=== PATIENT | female | born 1955 | race Caucasian/White ===

== ENCOUNTER → 2018-01-24 10:58 | Outpatient (CLI) | payer OTHER, SELFPAY ==
--- NOTE | 2018-01-25 09:47 | PFT ---
INTRODUCTION: The patient is a 62-year-old female currently under the care of Dr. David Irving that presents for pulmonary function testing secondary to a diagnosis of COPD. Respiratory therapy reports good patient effort and reports no other concerns. Bronchodilators were used during testing. INTERPRETATION: Forced expiration spirometry demonstrates no evidence of a large airways obstructive ventilatory defect. There was no significant response to aerosolized bronchodilators, based upon strict ATS criteria. Spirograms are of good quality and plateau normally. Body plethysmography was performed and reveals lung volumes to be within normal limits. Diffusing capacity by single breath CO is moderately reduced at 47% of predicted. IMPRESSION: These pulmonary function studies demonstrate the presence of an isolated moderate reduction in diffusing capacity, which could be related to an underlying pulmonary vascular disorder such as pulmonary hypertension. Consideration can be given to obtaining a surface echocardiogram for further evaluation, if clinically indicated.
== END ==
PROVIDERS: Family Provider Family Medicine; PCP Family Medicine; Visit Provider Family Medicine
DX: J44.9 Chronic obstructive pulmonary disease, unspecified (principal)
CPT/HCPCS: 94060; 94726; 94729

== ENCOUNTER → 2018-03-06 07:39 | Outpatient (CLI) | payer OTHER, SELFPAY ==
--- NOTE | 2018-03-06 07:40 | US_ITS ---
STUDY: ULTRASOUND OF THE FEMALE PELVIS - COMPLETE REASON FOR EXAM: Female, 63 years old. Postmenopausal bleeding LMP: Post menopausal TECHNIQUE: Transabdominal and Transvaginal TECHNICAL QUALITY: Adequate. COMPARISON: None. FINDINGS: The uterus is anteverted and is in a midline position. The uterus measures 7.9 x 5.5 x 4.1 cm. There are cervical nabothian cysts. The endometrium measures 16.2 mm in thickness, and is hyperechoic. There is no demonstrated endometrial mass. There are 2 uterine fibroids measuring 2.8 x 2.2 x 1.9 cm and 1.4 x 1.3 x 1.2 cm respectively. I.U.D. - The patient does not have an I.U.D. The right ovary is visualized. The right ovary measures 2.9 x 2.6 x 1.9 cm. There is a 1.9 x 2.0 x 1.6 cm right ovarian cyst. There is no visualized right adnexal mass or complex lesion. There is normal arterial and normal venous vascularity. The left ovary is non-visualized. There is no fluid in the cul-de-sac. The prevoiding urinary bladder volume is 249 cc. Polycystic ovary disease: No. US/Pelvic (Non ) IMPRESSION: 1. Cervical nabothian cysts. 2. 2 uterine fibroids as detailed above. 3. Thickened endometrium measuring up to 16.2 mm. 4. 1.9 x 2.0 x 1.6 cm right ovarian cyst. Electronically Signed: Jonh Carlos MD at 18:49 EDT , Service support ,
--- NOTE | 2018-03-06 07:57 | US_ITS ---
STUDY: ULTRASOUND OF THE FEMALE PELVIS - COMPLETE REASON FOR EXAM: Female, 63 years old. Postmenopausal bleeding LMP: Post menopausal TECHNIQUE: Transabdominal and Transvaginal TECHNICAL QUALITY: Adequate. COMPARISON: None. FINDINGS: The uterus is anteverted and is in a midline position. The uterus measures 7.9 x 5.5 x 4.1 cm. There are cervical nabothian cysts. The endometrium measures 16.2 mm in thickness, and is hyperechoic. There is no demonstrated endometrial mass. There are 2 uterine fibroids measuring 2.8 x 2.2 x 1.9 cm and 1.4 x 1.3 x 1.2 cm respectively. I.U.D. - The patient does not have an I.U.D. The right ovary is visualized. The right ovary measures 2.9 x 2.6 x 1.9 cm. There is a 1.9 x 2.0 x 1.6 cm right ovarian cyst. There is no visualized right adnexal mass or complex lesion. There is normal arterial and normal venous vascularity. The left ovary is non-visualized. There is no fluid in the cul-de-sac. The prevoiding urinary bladder volume is 249 cc. Polycystic ovary disease: No. US/Transvaginal Non- IMPRESSION: 1. Cervical nabothian cysts. 2. 2 uterine fibroids as detailed above. 3. Thickened endometrium measuring up to 16.2 mm. 4. 1.9 x 2.0 x 1.6 cm right ovarian cyst. Electronically Signed: Jonh Carlos MD at 18:49 EDT , Service support ,
== END ==
PROVIDERS: Family Provider Family Medicine; PCP Family Medicine; Visit Provider Nurse Practitioner Family
DX: N95.0 Postmenopausal bleeding (principal)
CPT/HCPCS: 76830; 76856

== ENCOUNTER → 2018-04-12 17:00 | Outpatient (CLI) | payer OTHER, SELFPAY ==
--- NOTE | 2018-04-12 13:30 | EMB_PTH ---
PATIENT: LESLIE RODRIGUEZ LOC: [facility] U#:[id number] AGE/SX: 70/F ROOM: RE04/12/[address]: JOHANA Truong : 1955 BED: DIS: SPEC #: [id number] RECD: 04/12/18 17:01 STATUS: ELLE LUCIAN #: [id number] LEXI: 04/12/18 13:[address]: Pia Castro NP DEPT: SURGICAL PATHOLOGY RECD BY: Edouard Haas ENTERED: 04/13/18 07:08 SP TYPE: ENDOShaila BX/C MINERVA DR: Dr. David Irving DO Tissues: Endometrium, NOS Procedures: Surgery Specimen Level IV HEADER OPERATION: EMB PRE-OP DIAGNOSIS: PMB TISSUE SUBMITTED: Endometrial limning MICROSCOPIC DIAGNOSIS Endometrial biopsy: Inactive endometrium with extensive cystic changes. See comment. SJ:connor 04/14/18 COMMENT A few of the fragments have polypoid appearance, may represent fragments of benign endometrial polyp. MICROSCOPIC DESCRIPTION Slides are reviewed. GROSS DESCRIPTION Received in fixative is one container labeled with the patient's name and designated not further designated. The specimen consists of multiple fragments of hemorrhagic soft tissue mixed with huitron mucoid tissue. It measures, in aggregate, 3 x 2.5 x 0.2 cm. The entire specimen is submitted in one cassette. KHLOE:connor 04/13/18 TC:5 CPT: [id number]
== END ==
PROVIDERS: Family Provider Family Medicine; PCP Family Medicine; Visit Provider Nurse Practitioner Women's Health
DX: N95.0 Postmenopausal bleeding (principal)
CPT/HCPCS: 88305

== ENCOUNTER → 2018-05-11 06:04 | Outpatient (CLI) | payer OTHER, SELFPAY ==
--- NOTE | 2018-05-11 09:31 | STRESSREP ---
Stress Test Report Date: 05/11/2018 Procedure: Pharmacologic stress nuclear imaging study Indications: Chest pain; shortness of breath Consent: Per the patient Procedure: The patient underwent pharmacologic (Regadenoson) evaluation with a peak heart rate of 100 beats per minute (62 predicted maximal heart rate) and a peak blood pressure of 160/86 mmHg. The baseline ECG demonstrated normal sinus rhythm. The peak pharmacologic ECG demonstrated no obvious ECG changes. There were no cardiac dysrhythmias pretest, during pharmacologic infusion, or recovery. There was no complaint of chest discomfort during pharmacologic infusion or recovery. The examination was discontinued secondary to completion of protocol. Impression: 1. Pharmacologic (Regadenoson) evaluation 2. Peak pharmacologic ECG with no obvious ECG changes. 3. There were no cardiac dysrhythmias pretest, during pharmacologic infusion, or recovery 4. Nuclear images pending Myocardial perfusion imaging study: Technique: The patient was injected with 14.4 millicuries of technetium 99m Cardiolite and subsequently rest SPECT Cardiolite nuclear imaging was obtained in the horizontal long, vertical long, and short axis views. The patient underwent pharmacologic (Regadenoson) evaluation with a peak heart rate of 100 beats per minute (62 % percent predicted maximal heart rate) and a peak blood pressure of 160/86 mmHg. The patient was injected with 44.7 millicuries of technetium 99m Cardiolite and subsequently stress SPECT Cardiolite nuclear imaging was obtained in the horizontal long, vertical long, and short axis views. A gated Cardiolite study at peak stress was obtained. Interpretation: Rest and stress SPECT Cardiolite nuclear imaging status post realignment, normalization, and attenuation correction demonstrate the appearance of subtle diminished tracer uptake near the apical segments at rest which appear to be less prominent following stress. There are similar type findings on the resting and stress polar map images. There is end systolic thickening and brightening. The gated Cardiolite study demonstrates myocardial thickening and inward wall motion. The reported LVEF is 72 %. Impression: 1. Rest and stress SPECT Cardiolite nuclear imaging demonstrate the appearance of subtle diminished tracer uptake in the apical segments at rest which appear to improve following stress appearing compatible shifting soft tissue attenuation/artifact with no myocardial perfusion changes considered diagnostic for associated stress-induced myocardial ischemia or previous myocardial injury/infarction. 2. The gated Cardiolite study reports an LVEF of 72 %. This note was generated with [employer] software. It may contain incorrect words, spelling, and punctuation that were not noted in checking the note before signing.
--- NOTE | 2018-05-11 09:36 | STRESSREP_ITS ---
Stress Test Report Date: 05/11/2018 Procedure: Pharmacologic stress nuclear imaging study Indications: Chest pain; shortness of breath Consent: Per the patient Procedure: The patient underwent pharmacologic (Regadenoson) evaluation with a peak heart rate of 100 beats per minute (62 predicted maximal heart rate) and a peak blood pressure of 160/86 mmHg. The baseline ECG demonstrated normal sinus rhythm. The peak pharmacologic ECG demonstrated no obvious ECG changes. There were no cardiac dysrhythmias pretest, during pharmacologic infusion, or recovery. There was no complaint of chest discomfort during pharmacologic infusion or recovery. The examination was discontinued secondary to completion of protocol. Impression: 1. Pharmacologic (Regadenoson) evaluation 2. Peak pharmacologic ECG with no obvious ECG changes. 3. There were no cardiac dysrhythmias pretest, during pharmacologic infusion, or recovery 4. Nuclear images pending Myocardial perfusion imaging study: Technique: The patient was injected with 14.4 millicuries of technetium 99m Cardiolite and subsequently rest SPECT Cardiolite nuclear imaging was obtained in the horizontal long, vertical long, and short axis views. The patient underwent pharmacologic (Regadenoson) evaluation with a peak heart rate of 100 beats per minute (62 % percent predicted maximal heart rate) and a peak blood pressure of 160/86 mmHg. The patient was injected with 44.7 millicuries of technetium 99m Cardiolite and subsequently stress SPECT Cardiolite nuclear imaging was obtained in the horizontal long, vertical long, and short axis views. A gated Cardiolite study at peak stress was obtained. Interpretation: Rest and stress SPECT Cardiolite nuclear imaging status post realignment, normalization, and attenuation correction demonstrate the appearance of subtle diminished tracer uptake near the apical segments at rest which appear to be less prominent following stress. There are similar type findings on the resting and stress polar map images. There is end systolic thickening and brightening. The gated Cardiolite study demonstrates myocardial thickening and inward wall motion. The reported LVEF is 72 %. Impression: 1. Rest and stress SPECT Cardiolite nuclear imaging demonstrate the appearance of subtle diminished tracer uptake in the apical segments at rest which appear to improve following stress appearing compatible shifting soft tissue attenuation/artifact with no myocardial perfusion changes considered diagnostic for associated stress-induced myocardial ischemia or previous myocardial injury/ infarction. 2. The gated Cardiolite study reports an LVEF of 72 %. This note was generated with [employer] software. It may contain incorrect words, spelling, and punctuation that were not noted in checking the note before signing.
== END ==
PROVIDERS: Family Provider Family Medicine; PCP Family Medicine; Visit Provider Family Medicine
DX: R06.09 Other forms of dyspnea (principal)
CPT/HCPCS: 78452; 93017; A9500; A4216; J2785

== ENCOUNTER 2018-06-01 09:08 | Day surgery (SDC) | payer MEDICARE, SELFPAY ==
[2018-06-01 09:32] VITALS: BP 150/78; PULSE 69; RESP 16; TEMP 36.6; O2SAT 96; BMI 40.5
--- NOTE | 2018-06-01 09:37 | PCM.HPOB.BLA ---
- Problem List (1) Postmenopausal bleeding Status: Acute History and Physical Date of Admission: 06/01/18 Vital Signs 04/12/18 Height 5 ft 04/12/18 Weight: 208 lb 2 oz 04/12/18 Body Mass Index (BMI) 40.6 04/12/18 Blood Pressure 134/82 Intake Visit Reasons: PMB - OUT OF TOWN UNTIL NOW Chief Complaint: PMB Filleter Required: No Is patient in pain?: No Allergies bacitracin Allergy (Severe, Verified 04/12/18 13:35) Hives Latex, Natural Rubber Allergy (Severe, Verified 04/12/18 13:35) rash neomycin [From Neosporin ([id number])] Allergy (Severe, Verified 04/12/18 13:35) blisters polymyxin B [From Neosporin ([id number])] Allergy (Severe, Verified 04/12/18 13:35) blisters codeine Adverse Reaction (Severe, Verified 04/12/18 13:35) dizziness clidamycin Allergy (Severe, Uncoded 04/12/18 13:35) hives Medications calcium carbonat and lactate 200 mg calcium-vitamin D3 250 unit tablet 2 tab PO QAM AND QHS 01/05/18 [History Confirmed 04/12/18] duloxetine 60 mg capsule,delayed release 60 mg PO QDAY 01/05/18 [History Confirmed 04/12/18] hydrochlorothiazide 12.5 mg tablet 12.5 mg PO QAM 01/05/18 [History Confirmed 04/12/18] loratadine 5 mg-pseudoephedrine ER 120 mg tablet,extended release,12hr 1 tab PO Q12H 01/05/18 [History Confirmed 04/12/18] metoprolol tartrate 50 mg tablet 50 mg PO BID 01/05/18 [History Confirmed 04/12/18] metronidazole 0.75 % topical cream 1 applic TOPICAL BID 01/05/18 [History Confirmed 04/12/18] mirabegron ER 50 mg tablet,extended release 24 hr 50 mg PO Q24H 01/05/18 [History Confirmed 04/12/18] mupirocin 2 % topical cream 1 applic TOPICAL BID 01/05/18 [History Confirmed 04/12/18] nystatin 100,000 unit/gram topical powder 1 applic TOPICAL BID 01/05/18 [History Confirmed 04/12/18] nystatin-triamcinolone topical cream applic TOPICAL 01/05/18 [History Confirmed 04/12/18] polyethylene glycol 3350 17 gram/dose oral powder 17 g PO QDAY 01/05/18 [History Confirmed 04/12/18] potassium chloride ER 20 mEq tablet,extended release(part/cryst) 20 meq PO QDAY 01/05/18 [History Confirmed 04/12/18] ropinirole 2 mg tablet 2 mg PO QHS tab 01/05/18 [History Confirmed 04/12/18] triamcinolone acetonide 0.1 % topical cream 1 applic TOPICAL QDAY 01/05/18 [History Confirmed 04/12/18] valacyclovir 500 mg tablet 500 mg PO BID 01/05/18 [History Confirmed 04/12/18] omeprazole magnesium 20 mg tablet,delayed release 20 mg PO QDAY #90 tab 03/15/18 [Rx Confirmed 04/12/18] Is last menstrual period known: No Post menopausal: Yes Patient : No : No PFSH Medical History Frequent headaches (Chronic) GERD (gastroesophageal reflux disease) (Chronic) Psoriasis (Acute) Hypertension (Chronic) Cataracts, bilateral (Chronic) Seasonal allergies (Chronic) Depression with anxiety (Chronic) Diverticulitis (Chronic) History of Hodgkin's lymphoma (Acute) Fatty liver disease, nonalcoholic (Chronic) SOFÍA (obstructive sleep apnea) (Acute) Surgical History History of lymph node biopsy (Acute) History of tonsillectomy (Acute) History of tubal ligation (Acute) Family History Mother Alcoholism Hypertension Depression Sister Cancer cervical Depression Grandmother Alcoholism Grandfather Depression Alcoholism Myocardial infarction Heart disease Cancer throat Social History Smoking Status: Never smoker alcohol intake: current alcohol intake frequency: 0-2 drinks per day Alcohol type: wine details: social substance use type: does not use caffeine: Yes what type of physical activity do you participate in: none seatbelt use: always do you feel safe at home: Yes additional social history: [employer]- Retired Patient is retired HPI PMB - OUT OF TOWN UNTIL NOW: Details: LESLIE RODRIGUEZ is a 63 year old who presents for 1 month ago had 4 day normal menses. Saw PCP and had US indicating uterine lining 16mm. No bleeding since. On estrace X 5 years. States prempro prior to that for hot flushes. States 20 years postmenopausal. History of lymphoma. Last pap negative with PCP in 2017 (Dr. [facility] Irving) Pregancy History 3 Elective abortions Hx Para 2 Spontaneous abortions Hx # Term Pregnancies Ectopic pregnancies Hx # Pregnancies Multiple births # of living children Past Pregnancies Del. Date Name GA/Weeks Outcome Route Bth Weight Infant Gen Labor Lgth Anesthesia Del Locatn Provider FOB Unknown 1978 Maria Guti[facility]rez Unknown 1982 [place] [facility] Procedures Endometrial Biopsy Endometrial Biopsy Consent Signed: Yes Time out checklist: patient, procedure, site marked/identified, positioning of patient, supplies available, allergies confirmed, team agrees on procedure Time out time: 14:09 tenaculum used: Yes dilator used: No Details: Cervix prepped with betadine and pipelle inserted into uterus without complication. Sounded to 9cm. Specimen obtained and sent to lab for analysis. All instruments removed from vagina without complications. Excellent hemostasis noted. Patient tolerated well Assessment & Plan Problems 1. Postmenopausal bleeding N95.0 2. Thickened endometrium R93.8 Plan need hysteroscopy D&C discussed surgical risks including risks of anesthesia, infection, bleeding, injury to bowel, bladder or blood vessels, and patient wishes to proceed with surgery. UPDATE- I have seen the patient and performed any clinically relevant updates to the history and physical exam. Gina Kessler MD
[2018-06-01 09:55] LABS: Hematocrit 42.1 % (37-47); Hemoglobin 14.4 g/dl (12.0-15.0); Mean Corp Hgb Conc 34.2 g/gl (32-36); Mean Corpuscular Hgb 33.8 pg (27.0-32.0); Mean Corpuscular Volume 98.8 fL (81-99); Mean Platelet Vol. 9.9 fl (6.2-12.0); Platelet Count 161 K/mm3 (150-450); RBC Distribution Width CV 13.2 % (11.6-14.6); RBC Distribution Width SD 47.7 fl (35.1-43.9); Red Blood Count 4.26 M/mm3 (4.2-5.4); White Blood Count 6.8 K/mm3 (4.4-11.0)
[2018-06-01 09:57] LABS: Scan Indicated on CBC? Y/N NO
--- NOTE | 2018-06-01 10:40 | EMB_PTH ---
PATIENT: LESLIE RODRIGUEZ [place] [facility] [place][id number] AGE/SX: 63/F ROOM: RE06/01/[address]: Dr. Gina Kessler MD : 1955 BED: DIS: 06/01/2018 SPEC #: [id number] RECD: 06/01/18 14:51 STATUS: ELLE LUCIAN #: [id number] LEXI: 06/01/18 10:[address]: Gina Kessler DEPT: SURGICAL PATHOLOGY RECD BY: Marques Russell ENTERED: 06/02/18 09:03 SP TYPE: ENDOM BX/C MINERVA DR: Dr. David Irving, DO Tissues: Endometrium, NOS Procedures: Surgery Specimen Level IV HEADER OPERATION: Hysteroscopy, dilation and curettage PRE-OP DIAGNOSIS: Postmenopausal bleeding, thickened endometrium TISSUE SUBMITTED: Endometrial curettings, endometrial polyp MICROSCOPIC DIAGNOSIS Endometrial curettings, endometrial polyp: Simple cystic hyperplasia without atypia. Fragments of benign squamous epithelium. KHLOE:misty 06/05/18 COMMENT A few of the fragments have polypoid appearance and may represent fragments of polyp. Clinical correlation and appropriate follow up are necessary. Please make reference to previous specimen ([id number]) endometrial biopsy with diagnosis of inactive endometrium with extensive cystic changes. MICROSCOPIC DESCRIPTION Slides are reviewed. GROSS DESCRIPTION Received in fixative is one container labeled with the patient's name and designated endometrial curettings and endometrial polyp. The specimen consists of multiple irregular fragments of pink-red soft tissue that in aggregate measure 6 x 3 x 0.2 cm. The specimen is totally submitted in three cassettes. / AM:misty 06/02/18 TC:5 [facility]: [id number]
--- NOTE | 2018-06-01 11:21 | PCM.OPRPT ---
Problem List (1) Postmenopausal bleeding Status: Acute Report of Operation Date of Procedure: 06/01/18 Pre-Operative Diagnosis: Postmenopausal bleeding postmenopausal bleeding Post-Operative Diagnosis: Same Surgery/Procedure Performed:: D&C hysteroscopy polypectomy Description of Surgical Findings:: Atrophic lining with large endometrial polyp Type of Anesthesia:: Local MAC Specimen's removed: EMC and endometrial polyp Drains: None Estimated Blood Loss (mL): Minimal Fluids Replaced: Styloid Description of Procedure: Patient was prepped and draped in a normal sterile fashion under MAC anesthesia. A weighted speculum was placed in the vagina and the anterior lip of the cervix was grasped with a single-tooth tenaculum. A paracervical block was placed with 1% lidocaine. Cervix was progressively dilated to allow passage of a 5 mm hysteroscope. The lining was fully visualized and noted to have a large endometrial polyp. Uterine sounded to 8 cm. Curettage was performed and multiple pieces of the polyp were removed with polyp forceps and hysteroscopic polyp forceps, sent to pathology. All instruments were removed from the vagina and excellent hemostasis was noted. Patient was awoken and taken to recovery in stable condition. Grafts/Implants Used: None - Complications None - Admit VTE Documentation VTE Present on Admission: No
--- NOTE | 2018-06-01 11:24 | PCM.DC.D&C ---
Discharge Diet: No Restrictions Discharge Activity: Return to Normal Activity, May Shower, May Take a Tub Bath Allergies/Adverse Reactions: Allergies bacitracin Allergy (Severe, Verified 06/01/18 09:30) Hives Latex, Natural Rubber Allergy (Severe, Verified 06/01/18 09:30) rash neomycin [From Neosporin ([id number])] Allergy (Severe, Verified 06/01/18 09:30) blisters polymyxin B [From Neosporin ([id number])] Allergy (Severe, Verified 06/01/18 09:30) blisters codeine Adverse Reaction (Severe, Verified 06/01/18 09:30) dizziness clidamycin Allergy (Severe, Uncoded 06/01/18 09:30) hives Medications to take at Discharge calcium carbonat and lactate 200 mg calcium-vitamin D3 250 unit tablet 2 tab PO BID 01/05/18 duloxetine 60 mg capsule,delayed release 60 mg PO QHS 01/05/18 hydrochlorothiazide 12.5 mg tablet 12.5 mg PO QAM 01/05/18 loratadine 5 mg-pseudoephedrine ER 120 mg tablet,extended release,12hr 1 tab PO Q12H PRN 01/05/18 metoprolol tartrate 50 mg tablet 50 mg PO BID 01/05/18 metronidazole 0.75 % topical cream 1 applic TOPICAL BID 01/05/18 mirabegron ER 50 mg tablet,extended release 24 hr 50 mg PO DAILY 01/05/18 mupirocin 2 % topical cream 1 applic TOPICAL BID PRN 01/05/18 nystatin 100,000 unit/gram topical powder 1 applic TOPICAL BID 01/05/18 nystatin-triamcinolone topical cream 1 applic TOPICAL PRN PRN 01/05/18 polyethylene glycol 3350 17 gram/dose oral powder 17 g PO QDAY PRN 01/05/18 ropinirole 2 mg tablet 2 mg PO QHS tab 01/05/18 triamcinolone acetonide 0.1 % topical cream 1 applic TOPICAL QDAY 01/05/18 valacyclovir 500 mg tablet 500 mg PO BID 01/05/18 potassium chloride ER 20 mEq tablet,extended release(part/cryst) 20 meq PO QDAY #90 tab 05/04/18 Omeprazole Magnesium [Prilosec Otc] 20 mg PO QHS 05/25/18 Primary Care Physician: David Irving DO [Primary Care Provider] - Test Results: Test results from this visit will be discussed in further detail at your follow-up appointment, if applicable. Please Follow Up With: Gina Kessler MD - [phone]
[2018-06-01 11:33] VITALS: BP 141/96; BP 150/78; PULSE 84; RESP 18; TEMP 36.7; O2SAT 94
[2018-06-01 11:40] VITALS: BP 150/78; BP 151/90; PULSE 83; RESP 18; O2SAT 97
[2018-06-01 11:45] VITALS: BP 150/78; BP 151/88; PULSE 81; RESP 18; O2SAT 100
[2018-06-01 11:50] VITALS: BP 148/86; BP 150/78; PULSE 74; RESP 18; TEMP 36.9; O2SAT 97
[2018-06-01 12:51] VITALS: BP 150/78
== END 2018-06-01 12:55 | disposition home or self-care (01) ==
LOC: SDC 09:08 → AC 09:10
PROVIDERS: Family Provider Family Medicine; PCP Family Medicine; Visit Provider Obstetrics & Gynecology
PROC: 0UDB8ZZ Extraction of Endometrium, Via Natural or Artificial Opening Endoscopic (ICD-10-PCS; CPT 58558; principal; 2018-06-01 10:30)
DX: N95.0 Postmenopausal bleeding (principal); R93.8 Abnormal findings on diagnostic imaging of other specified body structures; N84.0 Polyp of corpus uteri; N85.01 Benign endometrial hyperplasia; K21.9 Gastro-esophageal reflux disease without esophagitis; I10 Essential (primary) hypertension; F41.8 Other specified anxiety disorders; Z85.71 Personal history of Hodgkin lymphoma; K76.0 Fatty (change of) liver, not elsewhere classified
CPT/HCPCS: 00952; 58558; 85027; 86850; 86900; 88305; J7120; J2405

== ENCOUNTER → 2018-08-30 16:09 | Outpatient (CLI) | payer MEDICARE, SELFPAY ==
[2018-08-30 15:23] VITALS: BMI 41.8
--- NOTE | 2018-08-30 16:12 | RAD_ITS ---
STUDY: X-RAY - LEFT HAND, ATTENTION FINGER REASON FOR EXAM: Female, 63 years old. Left thumb deformity TECHNIQUE: 3 views view(s) of the finger were obtained. COMPARISON: None. FINDINGS: No fractures or dislocations. Mild degenerative changes of the first carpometacarpal joint. The visualized soft tissues are normal. Electronically Signed: Robb Arreola MD at 5:51 EST Tel , Service support , RAD/Finger(s) Min 2 Views
== END ==
PROVIDERS: Family Provider Family Medicine; PCP Family Medicine; Referring Provider Family Medicine; Visit Provider Family Medicine
DX: M79.645 Pain in left finger(s) (principal)
CPT/HCPCS: 73140

== ENCOUNTER 2018-09-09 21:58 | Emergency (ER) | payer MEDICARE, SELFPAY ==
[2018-08-30 15:23] VITALS: BMI 41.8
[2018-09-09 21:59] VITALS: BP 204/99; PULSE 143; RESP 22; TEMP 36.9; O2SAT 100; BMI 41.0
--- NOTE | 2018-09-09 22:28 | US_ITS ---
STUDY: ULTRASOUND TRANSVAGINAL CLINICAL: Female, 63 years old. Dysfunctional uterine bleeding. Patient had a DTC 2 months ago. TECHNIQUE: Both transabdominal and transvaginal probes were used COMPARISON: 03/06/2018 FINDINGS: The uterus is somewhat anteverted and measures 11.0 x 6.5 x 6.0 cm. A 2.6 cm fibroid is seen in the posterior myometrial wall. There is an endometrial stripe thickness of 1.8 cm. The left ovary is not visualized. The right is seen and measures 2.1 x 2.6 x 3.4 cm. It also demonstrates normal Doppler flow and has a 2.0 cm cyst within it. There is no free fluid in the cul-de-sac. US/Transvaginal Non- IMPRESSION: A 2.0 cm right ovarian cyst with no free fluid in the cul-de-sac. The left ovary is not visualized. A 2.6 cm fibroid in the posterior myometrial wall Electronically Signed: Robb Arreola MD at 0:09 EST Tel , Service support ,
--- NOTE | 2018-09-09 22:33 | ED.DCSUM_ITS ---
- ER Visit Summary Date of Service: 09/09/18 Chief Complaint: Vaginal bleeding History of Present Illness: The patient is a 63 F with history of dysfunctional uterine bleeding status post ablation 3 months ago presents for vaginal bleeding for 3 days. Patient has been on norethindrone since the ablation, and she stopped taking it 4 days ago due to nipple discomfort. 3 days ago she began having vaginal bleeding. She is using approximately 1 pad an hour. It has been heavier since yesterday evening. She has had dizziness and lightheadedness with standing. Also having a headache and abdominal cramping. She denies urinary symptoms or other complaints. She denies being on any blood thinners or having any bleeding disorders. Physical Examination: Vital signs: afebrile, tachycardic at 120 bpm at rest, no hypoxia on room air General: well nourished, well developed, in no distress Skin: warm, dry, no rash, no pallor HEENT: normocephalic and atraumatic; PERRL, EOMI, moist mucous membranes Cardiovascular: Tachycardic rate and rhythm without murmurs, no peripheral edema, 2+ pulses all distal extremities Respiratory: No increased work of breathing, lungs are clear to auscultation bilaterally, no rales, rhonchi or wheezing Abdominal: Abdomen is soft, nontender with normoactive bowel sounds, no guarding or rebound, no masses MSK: Moves all extremities, no deformities, normal strength Neuro: Awake and alert, oriented ?4. No facial droop, sensation and motor function intact and symmetric : moderate dark red blood from cervix, no vaginal lacerations, no cervical motion tenderness Test Results: Abnormal Lab Results 09/09/18 09/09/18 09/09/18 22:40 22:40 22:40 WBC 7.6 RBC 3.91 L Hgb 13.1 Hct 38.3 MCV 98.0 MCH 33.5 H MCHC 34.2 RDW 13.0 RDW Differential 46.3 H Plt Count 166 MPV 9.8 Immature Gran % (Auto) 0.100 Neut % (Auto) 52.6 Lymph % (Auto) 38.4 [place] % (Auto) 5.4 Eos % (Auto) 3.0 Baso % (Auto) 0.5 Absolute Neuts (auto) 4.0 Absolute Lymphs (auto) 2.93 Total Counted Not Reportable Sodium 136 Potassium 3.3 L Chloride 103 Carbon Dioxide 25.0 Anion Gap 8 BUN 8 Creatinine 0.73 Estim Creat Clear Calc 58.13 Est GFR (MDRD) Af Amer 104 Est GFR (MDRD) Non-Af 86 BUN/Creatinine Ratio 11.0 Glucose 203 H Calcium 8.3 L Blood Type O POSITIVE Antibody Screen NEGATIVE Clinical Impression(s) from Imaging Studies Transvaginal US 09/09/18 22:28 IMPRESSION: A 2.0 cm right ovarian cyst with no free fluid in the cul-de-sac. The left ovary is not visualized. A 2.6 cm fibroid in the posterior myometrial wall Electronically Signed: Robb Arreola MD at 0:09 EST Tel , Service support , Medications Given Discontinued Medications Sodium Chloride () 1,000 mls @ 1,000 mls/hr IV .Q1H ONE Stop: 09/09/18 23:27 Last Admin: 09/09/18 22:50 Dose: 1,000 mls/hr Emergency Department Course and Treatment: Patient presents for 3 days of vaginal bleeding, and is tachycardic at presentation. She was given IV fluids for concern for volume depletion. Type and screen was performed in case patient requires transfusion. CBC showed no anemia.. Ultrasound of the pelvis showed a uterine fibroid and an endometrial stripe of 1.8 cm. Otherwise no significant findings. Patient did stop her norethindrone the day before the bleeding started, which is highly suspect for withdrawal bleeding. Patient was discussed with Jodi Castro, who agrees that this is likely withdrawal bleeding. She recommended patient restart the medication and take it 3 times daily until the bleeding stopped for 24 hours. Then switch to twice daily. Patient is to follow-up on Tuesday with Dr. Kessler, especially if bleeding persists. She will return if any worsening symptoms or continued heavy bleeding not responding to the medication. Patient agreed with this plan and was discharged home. At time of discharge, patient's heart rate had improved to 102. Treatment Plan: [] Disposition: [] Impression: Dysfunctional uterine bleeding, hormone withdrawal bleeding This note was generated with [employer] software. It may contain incorrect words, spelling, and punctuation that were not noted in review of the chart prior to signing ED Disposition - Plan for ED Patient: Disposition: Home or Assisted Living Chief Complaint: Vag Bleeding Instructions: ED Bleed Irregular Vaginal Referrals: David Irving DO [Primary Care Provider] - Gina Kessler MD [STAFF PHYSICIAN] - 2 Days Additional Instructions: Restart your norethindrone 5mg. Take it 3 times a day until your bleeding has stopped for 24 hours. Then start taking it twice a day. Call on Tuesday to follow-up with your character actor. If at any point you are having worsening of your symptoms rather than improvement, please return emergency department immediately for another evaluation.
[2018-09-09] MEDS: 0.9% Normal Saline 1,000 ML 1000 ML IV (22:50)
[2018-09-09 22:56] LABS: Absolute Lymphocyte Count 2.93 X10^3/ul (0.83-4.51); Basophil# 0.04 X10^3/uL; Basophil% 0.5 % (0-1); Eosinophil# 0.23 X10^3/uL; Hematocrit 38.3 % (37-47); Hemoglobin 13.1 g/dl (12.0-15.0); Lymphocyte # 2.93 X10^3/ul (4.0); Lymphocyte % 38.4 % (19-41); Mean Corp Hgb Conc 34.2 g/gl (32-36); Mean Corpuscular Hgb 33.5 pg (27.0-32.0); Mean Platelet Vol. 9.8 fl (6.2-12.0); Monocyte# 0.41 X10^3/uL; Monocyte% 5.4 % (0-10); Neutrophil # 4.01 X10^3/uL (2.7-7.7); Neutrophil % 52.6 % (47-70); Platelet Count 166 K/mm3 (150-450); RBC Distribution Width SD 46.3 fl (35.1-43.9); Red Blood Count 3.91 M/mm3 (4.2-5.4); White Blood Count 7.6 K/mm3 (4.4-11.0)
[2018-09-09 23:00] LABS: POSITIVE COUNT NO; POSITIVE DIFFERENTIAL NO; POSITIVE MORPHOLOGY NO
[2018-09-09 23:02] LABS: Anion Gap 8 (5-15); BUN 8 mg/dL (7-18); Calcium,Total 8.3 mg/dL (8.5-10.1); Chloride 103 mmol/L (98-107); Creatinine, Serum 0.73 mg/dL (0.55-1.02); EST Glomerular Filtration Rate 86 mL/min (>60); Est Glom Filt Rate - Afr Amer 104 mL/min (>60); Estimated Creatinine Clearance 58.13 ml/min; Glucose 203 mg/dL (74-106); Potassium 3.3 mmol/L (3.5-5.1); Sodium Level 136 mmol/L (136-145)
--- NOTE | 2018-09-10 00:54 | DCINST.ED_ITS ---
ED Disposition - Plan for ED Patient: Disposition: Home or Assisted Living Chief Complaint: Vag Bleeding Instructions: ED Bleed Irregular Vaginal Referrals: David Irving DO [Primary Care Provider] - Gina Kessler MD [STAFF PHYSICIAN] - 2 Days Additional Instructions: Restart your norethindrone 5mg. Take it 3 times a day until your bleeding has stopped for 24 hours. Then start taking it twice a day. Call on Tuesday to follow-up with your director intelligence analysis programs. If at any point you are having worsening of your symptoms rather than improvement, please return emergency department immediately for another evaluation.
[2018-09-10 00:57] VITALS: BP 138/74; PULSE 73; RESP 15; O2SAT 98
== END 2018-09-10 01:03 | disposition home or self-care (01) ==
PROVIDERS: Emergency Provider Emergency Medicine; Family Provider Family Medicine; PCP Family Medicine
DX: N93.8 Other specified abnormal uterine and vaginal bleeding (principal); N83.201 Unspecified ovarian cyst, right side; Z98.890 Other specified postprocedural states
CPT/HCPCS: 76830; 80048; 85025; 86850; 86900; 99282; J7030

== ENCOUNTER 2018-11-16 05:28 | Day surgery (SDC) | payer MEDICARE, SELFPAY ==
[2018-09-22 09:33] VITALS: BMI 41.0
--- NOTE | 2018-10-24 09:39 | EKG12_ITS ---
Test Reason : ROUTINE Blood Pressure : / mmHG Vent. Rate : 101 BPM Atrial Rate : 101 BPM P-R Int : 152 ms QRS Dur : 062 ms QT Int : 342 ms P-R-T Axes : 057 005 038 degrees QTc Int : 443 ms Sinus tachycardia Moderate voltage criteria for LVH, may be normal variant Borderline ECG Confirmed by GENNA GEE, RADHA ([id number]), assignment desk editor FELICE HARE ([id number]) on 10/25/2018 2:20:58 PM Referred By: Gina Kessler Confirmed By:RADHA VAIL MD
[2018-11-06 09:59] VITALS: BMI 35.9
[2018-11-10 09:38] LABS: Anion Gap 9 (5-15); BUN 10 mg/dL (7-18); BUN/Creat Ratio 12.8 RATIO (10-20); Calcium,Total 9.3 mg/dL (8.5-10.1); Chloride 103 mmol/L (98-107); Creatinine, Serum 0.78 mg/dL (0.55-1.02); EST Glomerular Filtration Rate 80 mL/min (>60); Est Glom Filt Rate - Afr Amer 97 mL/min (>60); Glucose 133 mg/dL (74-106); Potassium 3.7 mmol/L (3.5-5.1); Sodium Level 135 mmol/L (136-145)
--- NOTE | 2018-11-15 20:32 | HP.PCM_ITS ---
- Problem List (1) History of Hodgkin's lymphoma Status: Acute (2) Postmenopausal bleeding Status: Acute (3) Psoriasis Status: Acute (4) Sinusitis chronic, frontal Status: Acute (5) Cataracts, bilateral Status: Chronic (6) Depression with anxiety Status: Chronic (7) Diverticulitis Status: Chronic (8) Endometrial hyperplasia without atypia, simple Status: Chronic Comment: plan hysterectomy (9) Fatty liver disease, nonalcoholic Status: Chronic (10) Frequent headaches Status: Chronic (11) GERD (gastroesophageal reflux disease) Status: Chronic (12) Hypertension Status: Chronic (13) Seasonal allergies Status: Chronic (14) Ventricular tachyarrhythmia Status: Suspected Comment: Pt. will get a fitbit to monitor HR and see if its atrial fibrillation. (15) BOOP (bronchiolitis obliterans with organizing pneumonia) Status: Resolved History and Physical Date of Admission: 11/15/18 Intake Vital Signs 11/06/18 Body Mass Index (BMI) 35.9 11/06/18 Height 5 ft 11/06/18 Weight: 217 lb 11/06/18 Body Mass Index (BMI) 42.3 11/06/18 Blood Pressure 150/92 H Intake Visit Reasons: Pre-op surgery/SOAP Chief Complaint: pre op appt Regional Business Manager Required: No Is patient in pain?: No Allergies bacitracin Allergy (Severe, Verified 11/06/18 09:59) Hives Latex, Natural Rubber Allergy (Severe, Verified 11/06/18 09:59) rash neomycin [From Neosporin ([id number])] Allergy (Severe, Verified 11/06/18 09:59) blisters polymyxin B [From Neosporin ([id number])] Allergy (Severe, Verified 11/06/18 09:59) blisters clindamycin Allergy (Unknown, Verified 11/06/18 09:59) Unknown codeine Adverse Reaction (Severe, Verified 11/06/18 09:59) dizziness Medications calcium carbonat and lactate 200 mg calcium-vitamin D3 250 unit tablet 1 tab PO PRN PRN 01/05/18 [History Confirmed 10/06/18] metoprolol tartrate 50 mg tablet 50 mg PO BID 01/05/18 [History Confirmed 10/06/18] mupirocin 2 % topical cream 1 applic TOPICAL BID PRN 01/05/18 [History Confirmed 10/06/18] nystatin 100,000 unit/gram topical powder 1 applic TOPICAL BID 01/05/18 [History Confirmed 10/06/18] nystatin-triamcinolone topical cream 1 applic TOPICAL PRN PRN 01/05/18 [History Confirmed 10/06/18] polyethylene glycol 3350 17 gram/dose oral powder 17 g PO QDAY PRN 01/05/18 [History Confirmed 10/06/18] ropinirole 2 mg tablet 2 mg PO QHS tab 01/05/18 [History Confirmed 10/06/18] valacyclovir 500 mg tablet 500 mg PO BID 01/05/18 [History Confirmed 10/06/18] potassium chloride ER 20 mEq tablet,extended release(part/cryst) 20 meq PO QDAY #90 tab 05/04/18 [Rx Confirmed 10/06/18] Omeprazole Magnesium [Prilosec Otc] 20 mg PO QHS 05/25/18 [History Confirmed 10/06/18] hydrochlorothiazide 12.5 mg tablet 12.5 mg PO QAM #90 tab 06/05/18 [Rx Confirmed 10/06/18] norethindrone acetate 5 mg tablet 5 mg PO BID #60 tab 09/19/18 [Rx Confirmed 10/06/18] blood sugar diagnostic strips See Dose Instructions .ROUTE .MEDSUPPLY #50 ea 10/06/18 [Rx Confirmed 10/06/18] blood-glucose meter kit See Dose Instructions .ROUTE .MEDSUPPLY #1 ea 10/06/18 [Rx Confirmed 10/06/18] lancets 28 gauge See Dose Instructions .ROUTE .MEDSUPPLY #50 ea 10/06/18 [Rx Confirmed 10/06/18] lisinopril 5 mg tablet 5 mg PO DAILY #90 tab 10/06/18 [Rx Confirmed 10/06/18] metformin ER 500 mg tablet,extended release 24 hr 500 mg PO QPM #30 tab 10/06/18 [Rx Confirmed 10/06/18] triamcinolone acetonide 0.1 % topical cream 1 applic TOPICAL QDAY #30 g 10/06/18 [Rx Confirmed 10/06/18] duloxetine 60 mg capsule,delayed release 60 mg PO QHS #90 cap 10/23/18 [Rx] amoxicillin 875 mg-potassium clavulanate 125 mg tablet 1 tab PO BID #14 tab 10/31/18 [Rx Confirmed 10/31/18] prednisone 10 mg tablets in a dose pack See Rx Instructions PO PER PKG DIR #21 tab 10/31/18 [Rx Confirmed 10/31/18] Is last menstrual period known: No Post menopausal: Yes Patient : No : No PFSH Medical History Frequent headaches (Chronic) GERD (gastroesophageal reflux disease) (Chronic) Psoriasis (Acute) Hypertension (Chronic) Cataracts, bilateral (Chronic) Seasonal allergies (Chronic) Depression with anxiety (Chronic) Diverticulitis (Chronic) History of Hodgkin's lymphoma (Acute) Fatty liver disease, nonalcoholic (Chronic) SOFÍA (obstructive sleep apnea) (Acute) Diabetes mellitus (Chronic) Surgical History History of lymph node biopsy (Acute) History of tonsillectomy (Acute) History of tubal ligation (Acute) S/P dilation and curettage (Acute ~06/01/18) Family History Mother Alcoholism Hypertension Depression Sister Cancer cervical Depression Grandmother Alcoholism Grandfather Depression Alcoholism Myocardial infarction Heart disease Cancer throat Social History Smoking Status: Never smoker alcohol intake: current alcohol intake frequency: 0-2 drinks per day Alcohol type: wine details: social substance use type: does not use caffeine: Yes what type of physical activity do you participate in: none seatbelt use: always do you feel safe at home: Yes additional social history: [employer]- Retired Patient is retired HPI Pre-op surgery/SOAP: Details: LESLIE RODRIGUEZ is a 63 year old who presents for preop appointment. she has simple endometrial hyperplasia with persistent bleeding. she also has MIGUEL and some prolapse. she is having pelvic floor surgery by Dr Acuna the same day. Pregancy History 3 Elective abortions Hx Para 2 Spontaneous abortions Hx # Term Pregnancies Ectopic pregnancies Hx # Pregnancies Multiple births # of living children Past Pregnancies Del. Date Name GA/Weeks Outcome Route Bth Weight Gen Labor Lgth Anesthesia Del Locatn Provider FOB Unknown 1978 Maria Gutiérrez Unknown 1982 [place] Mahoney Constitutional: Denies poor appetite, headache(s), fever(s), increased appetite, weight gain, weight loss or fatigue Cardio Card: Denies chest pain Resp Resp: Reports cough GI GI: Reports as per HPI; denies vomiting, nausea, abdominal pain or constipation : Reports as per HPI; denies urinary urgency, vaginal discharge, urinary frequency, vaginal itching, vaginal odor, vaginal dryness, urinary incontinence, urinary hesitancy, difficulty urinating, painful urination or nipple discharge Skin Skin/Breast: Denies breast lump, breast pain, breast skin changes, nipple discharge or change in hair Exam Const General: cooperative, healthy appearing, comfortable, no acute distress, well developed Orientation: alert [facility] Head: normal to inspection, normocephalic Neck Neck: normal visual inspection, trachea midline Thyroid: thyroid normal Resp Effort & Inspection: normal respiratory effort GI Inspection: normal to inspection, non-distended Palpation: soft, no hepatosplenomegaly General: bladder normal to palpation External Female Exam: normal external appearance, normal appearance of the urethra Urethra: normal appearance of the urethra, normal palpation, no discharge Speculum Exam - Vagina: normal appearance of the vagina, normal vaginal discharge Speculum Exam - Cervix: normal appearance of the cervix, nontender Bimanual Exam- Vagina & Uterus: bladder normal to palpation, No cervical tenderness, normal bimanual exam, uterine size normal, uterine shape normal, uterine mobility normal, uterine consistency normal, normal cervical palpation, uterus non-tender Bimanual Exam- Adnexa, other: pelvic support normal Pelvic Support: normal Skin General: no rashes or lesions noted Assessment & Plan Problems 1. Endometrial hyperplasia without atypia, simple N85.01 plan hysterectomy 2. Postmenopausal bleeding N95.0 3. Type 2 diabetes mellitus without complication, without long-term current use of insulin E11.9 Plan discussed surgical risks including risks of anesthesia, infection, bleeding, injury to bowel, bladder or blood vessels, and patient wishes to proceed with surgery. Coding Level of Care Code No Charge Diagnoses Endometrial hyperplasia without atypia, simple N85.01 Postmenopausal bleeding N95.0 Type 2 diabetes mellitus without complication, without long-term current use of insulin E11.9 ??Diabetes mellitus type: type 2 ??Diabetes mellitus continuous churn buttermaker insulin use: without residential use ??Diabetes mellitus complication status: without complication UPDATE- I have seen the patient and performed any clinically relevant updates to the history and physical exam. Gina Kessler MD
[2018-11-16] VITALS (18 sets, daily range): BP systolic 147–189; BP diastolic 74–107; PULSE 77–101; RESP 16–18; TEMP 36.2–37.2; O2SAT 92–100; BMI 41.8
--- NOTE | 2018-11-16 | HYST_PTH ---
PATIENT: LESLIE RODRIGUEZ LOC: [facility] – [place] U#:[id number] AGE/SX: 63/F ROOM: RE11/16/[address]: Dr. Gina Kessler MD : [id number] BED: DIS: 11/17/2018 SPEC #: [id number] RECD: 11/16/18 14:39 STATUS: ELLE LUCIAN #: [id number] LEXI: 11/16/18 00:[address]: Gina Kessler DEPT: SURGICAL PATHOLOGY RECD BY: Payam Mauricio ENTERED: 11/16/18 14:39 SP TYPE: HYSTERECT OTHR DR: DO Dr. Jodi Akbar MD Mark Yoder, THREAD MILLING MACHINE SET UP OPERATOR-C Tissues: Uterus, NOS Procedures: Surgery Specimen Level V HEADER OPERATION: Hysterectomy, vaginal, bilateral salpingectomy, sling, cysto PRE-OP DIAGNOSIS: Endometrial hyperplasia without atypia; stress urinary incontinence TISSUE SUBMITTED: Uterus, bilateral fallopian tubes, vaginal mucosa MICROSCOPIC DIAGNOSIS Uterus, hysterectomy: Cervix - nabothian cysts, squamous metaplasia and mild chronic inflammation. Endometrium - simple glandular hyperplasia without atypia. Benign stromal hyperplasia consistent with exogenous hormonal effect. Myometrium - adenomyosis. Fallopian tubes - benign paratubal cyst. Vaginal mucosa, anterior-posterior repair: No pathologic change. AM:misty 11/17/18 MICROSCOPIC DESCRIPTION Slides are reviewed. GROSS DESCRIPTION Received in fixative is one container labeled with the patient's name and designated uterus. The specimen consists of a morcellated uterus received in six fragments. Among the six fragments are two recognized fragments of vaginal mucosa measuring in aggregate 5 x 2 x 0.5 cm and two portions of fallopian tube each measuring 4 cm in length and 0.5 cm in average diameter and containing fimbriated ends. The three remaining portions consist of uterus and portions of cervix that in aggregate measure 15 x 10 x 4.5 cm and weigh 210 gm. The presumed ectocervix and endocervix are grossly unremarkable. A distinct endometrial cavity is not identified. The endometrial lining appears to measure up to 0.5 cm in thickness. No distinct mass lesion is identified. The myometrium measures approximately 2.5 cm in average thickness and does not contain mass lesions. Therapeutic Specialist sections are submitted in 12 cassettes as follows: 1 - ectocervix, 2-10 - endometrium and adjacent myometrium, 11 - fallopian tubes, 12 - vaginal mucosa. / AM:misty 11/16/18 TC:5 CPT: 75149
[2018-11-16 06:15] LABS: Bedside Glucose 153 mg/dL (70-110)
[2018-11-16] MEDS: Vasopressin 20 UNITS/ML Vial (08:00)
--- NOTE | 2018-11-16 09:54 | PCM.OPRPT ---
Problem List (1) History of Hodgkin's lymphoma Status: Acute (2) Postmenopausal bleeding Status: Acute (3) Psoriasis Status: Acute (4) Sinusitis chronic, frontal Status: Acute (5) Cataracts, bilateral Status: Chronic (6) Depression with anxiety Status: Chronic (7) Diverticulitis Status: Chronic (8) Endometrial hyperplasia without atypia, simple Status: Chronic Comment: plan hysterectomy (9) Fatty liver disease, nonalcoholic Status: Chronic (10) Frequent headaches Status: Chronic (11) GERD (gastroesophageal reflux disease) Status: Chronic (12) Hypertension Status: Chronic (13) Seasonal allergies Status: Chronic (14) Ventricular tachyarrhythmia Status: Suspected Comment: Pt. will get a fitbit to monitor HR and see if its atrial fibrillation. Report of Operation Date of Procedure: 11/16/18 Pre-Operative Diagnosis: endometrial hyperplasia Post-Operative Diagnosis: same Surgery/Procedure Performed:: TVH BS posterior repair sling cysto Description of Surgical Findings:: enlarged uterus career agent: Ghazala De La Vega career agent: Jodi Acuna Type of Anesthesia:: General Special Medications: none Specimen's removed: uterus tubes Drains: chung Estimated Blood Loss (mL): 150 Fluids Replaced: crystalloid Description of Procedure: Patient was taken to the operating room and was placed under general anesthesia was prepped and draped in normal sterile fashion in the dorsal lithotomy position. Preoperative antibiotics and SCDs and Chung catheter was placed inside the bladder. Weighted speculum was placed in the vagina and the anterior and posterior lip of the cervix was grasped with 2 Francisca clamps and circumferentially injected with dilute vasopressin. A circumferential incision was made with a scalpel and the posterior cul-de-sac was entered into sharply and a longneck speculum was placed. The anterior cul-de-sac was also dissected down and entered into sharply and the uterosacral ligaments were clamped cut and suture ligated bilaterally followed by the cardinal ligaments which were Clamped cut and suture ligated bilaterally with 0 Monocryl. The uterus serially descended and progressive bites were taken bilaterally but visualization was very difficult due to the size of the uterus and the narrow vaginal access, morcellation was employed taking care to not spill any of the intrauterine contents inside the abdomen. The uterus was then progressively removed up to the level of the utero-ovarian ligament bilaterally which was clamped transected and ligated with 0 Monocryl suture and 0 Vicryl free tie. Bilateral fallopian tubes and ovaries were well visualized and noted be within normal limits and the bilateral fallopian tubes were transected across the base with a Olga clamp and removed and sutured with 0 Vicryl suture. Additional [id number] sutures were placed at bilateral pedicles for hemostasis. Excellent hemostasis was noted. Posterior peritoneum was reapproximated with The vagina, and it was closed with [id number] 0 Vicryl pop offs including the posterior and anterior peritoneum in the reapproximation. Excellent hemostasis was noted. please see dr hernandez operative note for additional info - Complications none
[2018-11-16] MEDS: Estrogens,Conj. 1 Tube 1 DOSE (09:57)
--- NOTE | 2018-11-16 09:59 | OP.PCM_ITS ---
Problem List (1) History of Hodgkin's lymphoma Status: Acute (2) Postmenopausal bleeding Status: Acute (3) Psoriasis Status: Acute (4) Sinusitis chronic, frontal Status: Acute (5) Cataracts, bilateral Status: Chronic (6) Depression with anxiety Status: Chronic (7) Diverticulitis Status: Chronic (8) Endometrial hyperplasia without atypia, simple Status: Chronic Comment: plan hysterectomy (9) Fatty liver disease, nonalcoholic Status: Chronic (10) Frequent headaches Status: Chronic (11) GERD (gastroesophageal reflux disease) Status: Chronic (12) Hypertension Status: Chronic (13) Seasonal allergies Status: Chronic (14) Ventricular tachyarrhythmia Status: Suspected Comment: Pt. will get a fitbit to monitor HR and see if its atrial fibrillation. Report of Operation Date of Procedure: 11/16/18 Pre-Operative Diagnosis: endometrial hyperplasia Post-Operative Diagnosis: same Surgery/Procedure Performed:: TVH BS posterior repair sling cysto Description of Surgical Findings:: enlarged uterus bundle tier and labeler: Ghazala De La Vega bundle tier and labeler: Jodi Acuna Type of Anesthesia:: General Special Medications: none Specimen's removed: uterus tubes Drains: chung Estimated Blood Loss (mL): 150 Fluids Replaced: crystalloid Description of Procedure: Patient was taken to the operating room and was placed under general anesthesia was prepped and draped in normal sterile fashion in the dorsal lithotomy position. Preoperative antibiotics and SCDs and Chung catheter was placed inside the bladder. Weighted speculum was placed in the vagina and the anterior and posterior lip of the cervix was grasped with 2 Francisca clamps and circumferentially injected with dilute vasopressin. A circumferential incision was made with a scalpel and the posterior cul-de-sac was entered into sharply and a longneck speculum was placed. The anterior cul-de-sac was also dissected down and entered into sharply and the uterosacral ligaments were clamped cut and suture ligated bilaterally followed by the cardinal ligaments which were Clamped cut and suture ligated bilaterally with 0 Monocryl. The uterus serially descended and progressive bites were taken bilaterally but visualization was very difficult due to the size of the uterus and the narrow vaginal access, morcellation was employed taking care to not spill any of the intrauterine contents inside the abdomen. The uterus was then progressively removed up to the level of the utero-ovarian ligament bilaterally which was clamped transected and ligated with 0 Monocryl suture and 0 Vicryl free tie. Bilateral fallopian tubes and ovaries were well visualized and noted be within normal limits and the bilateral fallopian tubes were transected across the base with a Olga clamp and removed and sutured with 0 Vicryl suture. Additional [id number] sutures were placed at bilateral pedicles for hemostasis. Excellent hemostasis was noted. Posterior peritoneum was reapproximated with The vagina, and it was closed with [id number] 0 Vicryl pop offs including the posterior and anterior peritoneum in the reapproximation. Excellent hemostasis was noted. please see dr hernandez operative note for additional info - Complications none
--- NOTE | 2018-11-16 10:34 | PCM.OPRPT ---
Problem List (1) Rectocele Status: Acute (2) Stress incontinence Status: Acute (3) Urethral hypermobility Status: Acute Report of Operation Date of Procedure: 11/16/18 Pre-Operative Diagnosis: rectocele, urethral hypermobility, stress incontinence Post-Operative Diagnosis: same Surgery/Procedure Performed:: posterior repair, Altis midurethral sling insertion, cystoscopy with bilateral ureteral catheterization. Description of Surgical Findings:: no complications. cart pusher: Ghazala De La Vega cart pusher: Gina Kessler Type of Anesthesia:: General Special Medications: none Specimen's removed: uterus tubes Drains: chung Estimated Blood Loss (mL): 150 Fluids Replaced: crystalloid Description of Procedure: The patient is a 63-year-old female who I saw in the office with issues regarding stress urinary incontinence and mild pelvic organ prolapse. She underwent urodynamics and cystoscopy. After discussing all the risks benefits and alternatives she agreed to proceed with surgical intervention concomitantly with her hysterectomy done by Dr. Kessler. The patient was taken to the operating room and placed on the operating room table. Anesthesia monitored the head, neck, airway, IV access, vital signs throughout the case. Once anesthesia was appropriately administered, the patient was placed into dorsal lithotomy and Trendelenburg position. She was prepped and draped in usual sterile fashion. A 16 Khmer Chung catheter was inserted and her urinary bladder was emptied. Dr. Kessler proceeded to perform a hysterectomy bilateral salphingoophorectomy. Following closure of the vaginal cuff, the case was turned to tn. She was identified as having a small grade 2 rectocele with no pending perineal body defect. The posterior vaginal wall was injected submucosally with vasopressin for hydrostatic dissection and hemostatic control. A midline incision was made in both sharp and blunt dissection ensued until the rectovaginal fascia was identified bilaterally. This was then brought together in interrupted fashion with 2-0 Vicryl suture. The vaginal incision was then closed using running interlocking 2-0 Vicryl. Attention was then turned towards the mid urethra which was once again injected with vasopressin. A midline vertical incision approximately 1.5 cm in length was then made in both blunt and sharp dissection ensued until the periurethral space was opened bilaterally. Using the trochars, the Altis mid urethral sling was inserted without difficulty. The sling was flattened and positioned against the urethra without tension. The midline incision was closed using running interlock in 2-0 Vicryl. The patient was taken out of Trendelenburg and a cystourethroscopy was performed revealing no foreign body, mucosal abnormality, laceration or injury to the urinary bladder or urethra. At this time the patient was likely dry as there are no ureteral jets observed and a whistle-tip catheter was easily inserted to 24 cm bilaterally without blood and without difficulty. The cystoscope was removed and the Chung catheter was reinserted. The patient's vagina was packed using Premarin cream and vaginal packing. She was awakened and taken to the recovery room in good condition. These note that this note is a dictation and there may be type errors. Grafts/Implants Used: Altis mid urethral sling - Complications none - Admit VTE Documentation VTE Present on Admission: Yes VTE Mechan Device Prophylaxis: SCD's VTE Pharm Prophylaxis ordered?: No Reason prophylaxis not ordered:: Treatment Not Indicated
--- NOTE | 2018-11-16 10:42 | OP.PCM_ITS ---
Problem List (1) Rectocele Status: Acute (2) Stress incontinence Status: Acute (3) Urethral hypermobility Status: Acute Report of Operation Date of Procedure: 11/16/18 Pre-Operative Diagnosis: rectocele, urethral hypermobility, stress incontinence Post-Operative Diagnosis: same Surgery/Procedure Performed:: posterior repair, Altis midurethral sling insertion, cystoscopy with bilateral ureteral catheterization. Description of Surgical Findings:: no complications. early childhood associate teacher: Ghazala De La Vega early childhood associate teacher: Gina Kessler Type of Anesthesia:: General Special Medications: none Specimen's removed: uterus tubes Drains: chung Estimated Blood Loss (mL): 150 Fluids Replaced: crystalloid Description of Procedure: The patient is a 63-year-old female who I saw in the office with issues regarding stress urinary incontinence and mild pelvic organ prolapse. She underwent urodynamics and cystoscopy. After discussing all the risks benefits and alternatives she agreed to proceed with surgical intervention concomitantly with her hysterectomy done by Dr. Kessler. The patient was taken to the operating room and placed on the operating room table. Anesthesia monitored the head, neck, airway, IV access, vital signs throughout the case. Once anesthesia was appropriately administered, the patient was placed into dorsal lithotomy and Trendelenburg position. She was prepped and draped in usual sterile fashion. A 16 Swedish Chung catheter was inserted and her urinary bladder was emptied. Dr. Kessler proceeded to perform a hysterectomy bilateral salphingoophorectomy. Following closure of the vaginal cuff, the case was turned to ct. She was identified as having a small grade 2 rectocele with no pending perineal body defect. The posterior vaginal wall was injected submucosally with vasopressin for hydrostatic dissection and hemostatic control. A midline incision was made in both sharp and blunt dissection ensued until the rectovaginal fascia was identified bilaterally. This was then brought together in interrupted fashion with 2-0 Vicryl suture. The vaginal incision was then closed using running interlocking 2-0 Vicryl. Attention was then turned towards the mid urethra which was once again injected with vasopressin. A midline vertical incision approximately 1.5 cm in length was then made in both blunt and sharp dissection ensued until the periurethral space was opened bilaterally. Using the trochars, the Altis mid urethral sling was inserted without difficulty. The sling was flattened and positioned against the urethra without tension. The midline incision was closed using running interlock in 2-0 Vicryl. The patient was taken out of Trendelenburg and a cystourethroscopy was performed revealing no foreign body, mucosal abnormality, laceration or injury to the urinary bladder or urethra. At this time the patient was likely dry as there are no ureteral jets observed and a whistle-tip catheter was easily inserted to 24 cm bilaterally without blood and without difficulty. The cystoscope was removed and the Chung catheter was reinserted. The patient's vagina was packed using Premarin cream and vaginal packing. She was awakened and taken to the recovery room in good condition. These note that this note is a dictation and there may be type errors. Grafts/Implants Used: Altis mid urethral sling - Complications none - Admit VTE Documentation VTE Present on Admission: Yes VTE Mechan Device Prophylaxis: SCD's VTE Pharm Prophylaxis ordered?: No Reason prophylaxis not ordered:: Treatment Not Indicated
[2018-11-16 10:45] LABS: Bedside Glucose 168 mg/dL (70-110)
--- NOTE | 2018-11-16 12:52 | DCINST_ITS ---
Discharge Diet: No Restrictions Discharge Activity: Return to Normal Activity, May Not Drive, May Shower May resume sexual activity in: 6-8 weeks Call your doctor if your incision/area has: Continuous Slow Oozing, Sudden Increased Bleeding, Increased Pain/ Swelling, Increased Redness, Foul Smelling Discharge Call your doctor if you observe: Fever of 101 or Higher, Inability to urinate, Inability to have a bowel movement, Using more than one pad per hour Allergies/Adverse Reactions: Allergies bacitracin Allergy (Severe, Verified 11/06/18 09:59) Hives Latex, Natural Rubber Allergy (Severe, Verified 11/06/18 09:59) rash neomycin [From Neosporin ([id number])] Allergy (Severe, Verified 11/06/18 09:59) blisters polymyxin B [From Neosporin ([id number])] Allergy (Severe, Verified 11/06/18 09:59) blisters clindamycin Allergy (Unknown, Verified 11/09/18 13:13) Hives codeine Adverse Reaction (Severe, Verified 11/09/18 13:13) dizziness HEART PALPATAIONS Medications to take at Discharge calcium carbonat and lactate 200 mg calcium-vitamin D3 250 unit tablet 1 tab PO PRN PRN 01/05/18 metoprolol tartrate 50 mg tablet 50 mg PO BID 01/05/18 mupirocin 2 % topical cream 1 applic TOPICAL BID PRN 01/05/18 nystatin 100,000 unit/gram topical powder 1 applic TOPICAL BID 01/05/18 nystatin-triamcinolone topical cream 1 applic TOPICAL PRN PRN 01/05/18 polyethylene glycol 3350 17 gram/dose oral powder 17 g PO QDAY PRN 01/05/18 ropinirole 2 mg tablet 2 mg PO QHS tab 01/05/18 valacyclovir 500 mg tablet 500 mg PO DAILY 01/05/18 potassium chloride ER 20 mEq tablet,extended release(part/cryst) 20 meq PO QDAY #90 tab 05/04/18 Omeprazole Magnesium [Prilosec Otc] 20 mg PO QHS 05/25/18 hydrochlorothiazide 12.5 mg tablet 12.5 mg PO QAM #90 tab 06/05/18 norethindrone acetate 5 mg tablet 5 mg PO BID #60 tab 09/19/18 blood sugar diagnostic strips See Dose Instructions .ROUTE .MEDSUPPLY #50 ea 10/06/18 blood-glucose meter kit See Dose Instructions .ROUTE .MEDSUPPLY #1 ea 10/06/18 lancets 28 gauge See Dose Instructions .ROUTE .MEDSUPPLY #50 ea 10/06/18 lisinopril 5 mg tablet 5 mg PO DAILY #90 tab 10/06/18 metformin ER 500 mg tablet,extended release 24 hr 500 mg PO QPM #30 tab 10/06/18 triamcinolone acetonide 0.1 % topical cream 1 applic TOPICAL QDAY #30 g 10/06/18 duloxetine 60 mg capsule,delayed release 60 mg PO QHS #90 cap 10/23/18 Estradiol [Divigel] 1 each TD DAILY 11/09/18 Naproxen [Naprosyn] 250 - 500 mg PO Q8H PRN PRN #30 tablet 11/16/18 Oxycodone HCl/Acetaminophen [Percocet 5-325] 1 - 2 tablet PO Q4H PRN PRN 7 Days #28 tablet 11/16/18 The following prescriptions were given: Oxycodone HCl/Acetaminophen [Percocet 5-325] 1 - 2 tablet PO Q4H PRN PRN 7 Days #28 tablet PRN Reason: Moderate-Severe pain Naproxen [Naprosyn] 250 - 500 mg PO Q8H PRN PRN #30 tablet PRN Reason: MILD PAIN Primary Care Physician: David Irving DO [Primary Care Provider] - Test Results: Test results from this visit will be discussed in further detail at your follow- up appointment, if applicable. Please Follow Up With: Gina Kessler MD - [phone]
[2018-11-16] MEDS: Ketorolac 30 MG/ML Syringe IV ×2 (14:23→20:32)
[2018-11-16 16:16] LABS: Bedside Glucose 140 mg/dL (70-110)
[2018-11-16] MEDS: Acetaminophen 500 MG Tablet 1000 MG PO (18:58)
[2018-11-16] MEDS: hydrALAZINE 20 MG/ML Vial 10 MG IV (20:32)
[2018-11-16] MEDS: Cephalexin 500 MG Capsule PO (22:00)
[2018-11-16] MEDS: Docusate Sodium 100 MG Capsule PO (22:00)
[2018-11-16] MEDS: DULoxetine Hcl 60 MG Capsule PO (22:00)
[2018-11-16] MEDS: Pramipexole Di-HCl 1 MG Tablet PO (22:01)
[2018-11-16] MEDS: Pantoprazole Sodium 20 MG Tablet PO (22:01)
[2018-11-16] MEDS: Metoprolol Tartrate 50 MG Tablet PO (22:01)
[2018-11-16] MEDS: Acyclovir 200 MG Capsule PO (22:01)
[2018-11-16 22:11] LABS: Bedside Glucose 121 mg/dL (70-110)
[2018-11-17] VITALS (8 sets, daily range): BP systolic 128–163; BP diastolic 67–90; PULSE 81–99; RESP 18; TEMP 36.6–36.9; O2SAT 85–96
[2018-11-17] MEDS: Acetaminophen 500 MG Tablet 1000 MG PO ×3 (01:06→11:32)
[2018-11-17] MEDS: Ketorolac 30 MG/ML Syringe IV ×2 (01:06→09:30)
[2018-11-17] MEDS: Lactated Ringers 1,000 ML 125 ML IV (01:06)
[2018-11-17 06:34] LABS: Hematocrit 36.8 % (37-47); Hemoglobin 12.5 g/dl (12.0-15.0); Mean Corpuscular Hgb 34.1 pg (27.0-32.0); Mean Corpuscular Volume 100.3 fL (81-99); Mean Platelet Vol. 10.3 fl (6.2-12.0); Platelet Count 185 K/mm3 (150-450); RBC Distribution Width CV 13.4 % (11.6-14.6); RBC Distribution Width SD 47.7 fl (35.1-43.9); Red Blood Count 3.67 M/mm3 (4.2-5.4); White Blood Count 8.4 K/mm3 (4.4-11.0)
[2018-11-17 06:36] LABS: Scan Indicated on CBC? Y/N NO
[2018-11-17 06:51] LABS: Bedside Glucose 119 mg/dL (70-110)
--- NOTE | 2018-11-17 07:37 | NURSING ---
This nurse aware that blood sugar via lab drawl this morning is 119.
--- NOTE | 2018-11-17 09:22 | PCM.DC.URO ---
Discharge Diet: - - diabetic diet Discharge Activity: May Not Drive, May Shower May resume sexual activity in: 6-8 weeks Additional Activity Instructions:: No lifting over 5 pounds. No strenuous activity or exercise. No intercourse until ok by exam in the office. No tub bathing, ok to shower. Nothing in vagina except estradiol cream, please continue as prior to surgery. Call your doctor if your incision/area has: Continuous Slow Oozing, Sudden Increased Bleeding, Increased Pain/ Swelling, Increased Redness, Foul Smelling Discharge Call your doctor if you observe: Fever of 101 or Higher, Inability to urinate, Inability to have a bowel movement, Using more than one pad per hour, Chest pain, Calf discomfort, Uncontrolled pain Allergies/Adverse Reactions: Allergies bacitracin Allergy (Severe, Verified 11/06/18 09:59) Hives Latex, Natural Rubber Allergy (Severe, Verified 11/06/18 09:59) rash neomycin [From Neosporin ([id number])] Allergy (Severe, Verified 11/06/18 09:59) blisters polymyxin B [From Neosporin ([id number])] Allergy (Severe, Verified 11/06/18 09:59) blisters clindamycin Allergy (Unknown, Verified 11/09/18 13:13) Hives codeine Adverse Reaction (Severe, Verified 11/09/18 13:13) dizziness HEART PALPATAIONS Medications to take at Discharge calcium carbonat and lactate 200 mg calcium-vitamin D3 250 unit tablet 1 tab PO PRN PRN 01/05/18 metoprolol tartrate 50 mg tablet 50 mg PO BID 01/05/18 mupirocin 2 % topical cream 1 applic TOPICAL BID PRN 01/05/18 nystatin 100,000 unit/gram topical powder 1 applic TOPICAL BID 01/05/18 nystatin-triamcinolone topical cream 1 applic TOPICAL PRN PRN 01/05/18 polyethylene glycol 3350 17 gram/dose oral powder 17 g PO QDAY PRN 01/05/18 ropinirole 2 mg tablet 2 mg PO QHS tab 01/05/18 valacyclovir 500 mg tablet 500 mg PO DAILY 01/05/18 potassium chloride ER 20 mEq tablet,extended release(part/cryst) 20 meq PO QDAY #90 tab 05/04/18 Omeprazole Magnesium [Prilosec Otc] 20 mg PO QHS 08/09/18 hydrochlorothiazide 12.5 mg tablet 12.5 mg PO QAM #90 tab 06/05/18 norethindrone acetate 5 mg tablet 5 mg PO BID #60 tab 09/19/18 blood sugar diagnostic strips See Dose Instructions .ROUTE .MEDSUPPLY #50 ea 10/06/18 blood-glucose meter kit See Dose Instructions .ROUTE .MEDSUPPLY #1 ea 10/06/18 lancets 28 gauge See Dose Instructions .ROUTE .MEDSUPPLY #50 ea 10/06/18 lisinopril 5 mg tablet 5 mg PO DAILY #90 tab 10/06/18 metformin ER 500 mg tablet,extended release 24 hr 500 mg PO QPM #30 tab 10/06/18 triamcinolone acetonide 0.1 % topical cream 1 applic TOPICAL QDAY #30 g 10/06/18 duloxetine 60 mg capsule,delayed release 60 mg PO QHS #90 cap 10/23/18 Estradiol [Divigel] 1 each TD DAILY 11/09/18 Naproxen [Naprosyn] 250 - 500 mg PO Q8H PRN PRN #30 tablet 11/16/18 Oxycodone HCl/Acetaminophen [Percocet 5-325] 1 - 2 tablet PO Q4H PRN PRN 7 Days #28 tablet 11/16/18 The following prescriptions were given: Oxycodone HCl/Acetaminophen [Percocet 5-325] 1 - 2 tablet PO Q4H PRN PRN 7 Days #28 tablet PRN Reason: Moderate-Severe pain Naproxen [Naprosyn] 250 - 500 mg PO Q8H PRN PRN #30 tablet PRN Reason: MILD PAIN Primary Care Physician: David Irving DO [Primary Care Provider] - Test Results: Test results from this visit will be discussed in further detail at your follow-up appointment, if applicable. Please Follow Up With: Jodi Acuna MD When: in 2 weeks, call office for appt Proposed Discharge Date: 11/17/18
--- NOTE | 2018-11-17 09:25 | DCINST_ITS ---
Discharge Diet: - - diabetic diet Discharge Activity: May Not Drive, May Shower May resume sexual activity in: 6-8 weeks Additional Activity Instructions:: No lifting over 5 pounds. No strenuous activity or exercise. No intercourse until ok by exam in the office. No tub bathing, ok to shower. Nothing in vagina except estradiol cream, please continue as prior to surgery. Call your doctor if your incision/area has: Continuous Slow Oozing, Sudden Increased Bleeding, Increased Pain/ Swelling, Increased Redness, Foul Smelling Discharge Call your doctor if you observe: Fever of 101 or Higher, Inability to urinate, Inability to have a bowel movement, Using more than one pad per hour, Chest pain, Calf discomfort, Uncontrolled pain Allergies/Adverse Reactions: Allergies bacitracin Allergy (Severe, Verified 11/06/18 09:59) Hives Latex, Natural Rubber Allergy (Severe, Verified 11/06/18 09:59) rash neomycin [From Neosporin ([id number])] Allergy (Severe, Verified 11/06/18 09:59) blisters polymyxin B [From Neosporin ([id number])] Allergy (Severe, Verified 11/06/18 09:59) blisters clindamycin Allergy (Unknown, Verified 11/09/18 13:13) Hives codeine Adverse Reaction (Severe, Verified 11/09/18 13:13) dizziness HEART PALPATAIONS Medications to take at Discharge calcium carbonat and lactate 200 mg calcium-vitamin D3 250 unit tablet 1 tab PO PRN PRN 01/05/18 metoprolol tartrate 50 mg tablet 50 mg PO BID 01/05/18 mupirocin 2 % topical cream 1 applic TOPICAL BID PRN 01/05/18 nystatin 100,000 unit/gram topical powder 1 applic TOPICAL BID 01/05/18 nystatin-triamcinolone topical cream 1 applic TOPICAL PRN PRN 01/05/18 polyethylene glycol 3350 17 gram/dose oral powder 17 g PO QDAY PRN 01/05/18 ropinirole 2 mg tablet 2 mg PO QHS tab 01/05/18 valacyclovir 500 mg tablet 500 mg PO DAILY 01/05/18 potassium chloride ER 20 mEq tablet,extended release(part/cryst) 20 meq PO QDAY #90 tab 05/04/18 Omeprazole Magnesium [Prilosec Otc] 20 mg PO QHS 08/09/18 hydrochlorothiazide 12.5 mg tablet 12.5 mg PO QAM #90 tab 06/05/18 norethindrone acetate 5 mg tablet 5 mg PO BID #60 tab 09/19/18 blood sugar diagnostic strips See Dose Instructions .ROUTE .MEDSUPPLY #50 ea 10/06/18 blood-glucose meter kit See Dose Instructions .ROUTE .MEDSUPPLY #1 ea 10/06/18 lancets 28 gauge See Dose Instructions .ROUTE .MEDSUPPLY #50 ea 10/06/18 lisinopril 5 mg tablet 5 mg PO DAILY #90 tab 10/06/18 metformin ER 500 mg tablet,extended release 24 hr 500 mg PO QPM #30 tab 10/06/18 triamcinolone acetonide 0.1 % topical cream 1 applic TOPICAL QDAY #30 g 10/06/18 duloxetine 60 mg capsule,delayed release 60 mg PO QHS #90 cap 10/23/18 Estradiol [Divigel] 1 each TD DAILY 11/09/18 Naproxen [Naprosyn] 250 - 500 mg PO Q8H PRN PRN #30 tablet 11/16/18 Oxycodone HCl/Acetaminophen [Percocet 5-325] 1 - 2 tablet PO Q4H PRN PRN 7 Days #28 tablet 11/16/18 The following prescriptions were given: Oxycodone HCl/Acetaminophen [Percocet 5-325] 1 - 2 tablet PO Q4H PRN PRN 7 Days #28 tablet PRN Reason: Moderate-Severe pain Naproxen [Naprosyn] 250 - 500 mg PO Q8H PRN PRN #30 tablet PRN Reason: MILD PAIN Primary Care Physician: David Irving DO [Primary Care Provider] - Test Results: Test results from this visit will be discussed in further detail at your follow- up appointment, if applicable. Please Follow Up With: Jodi Acuna MD When: in 2 weeks, call office for appt Proposed Discharge Date: 11/17/18
--- NOTE | 2018-11-17 09:25 | PCM.PN.GU ---
Physical Exam Subjective: Up in bed. Sore but doing well. Chung and packing out. Has voided a little dribble. PVR not yet done. We re-discussed post-operative instructions. - Physical Exam Vital Signs Temp 97.8 F 11/17/18 02:25 Pulse 99 11/17/18 02:25 Resp 18 11/17/18 02:25 BP 128/67 H 11/17/18 02:25 Pulse Ox 95 11/17/18 02:25 Intake & Output 11/15/18 11/16/18 11/17/18 23:59 23:59 23:59 Intake Total 3860 / 3860 872 / 872 Output Total 1260 / 1260 1550 / 1550 Balance 2600 / 2600 -678 / -678 Weight: 97.3 kg Intake: Oral 750 / 750 IV fluid/meds 3110 / 3110 872 / 872 IV #3 1999 Output: Urine 1260 / 1260 1550 / 1550 General: Alert, Oriented x3, Cooperative, No apparent distress HEENT: Atraumatic, Normocephalic Oral: Moist Mucosa Neck: Supple, Trachea Midline Lungs: Normal air movement Cardiovascular: Regular rate Abdomen: Soft Rectal: Exam deferred Skin: No rashes Musculoskeletal: No Muscle Wasting Neurological: Cranial nerves II-XII grossly intact Psych/Mental Status: Normal Affect Laboratory Tests Past 24 Hrs 11/17/18 06:18 WBC 8.4 RBC 3.67 L Hgb 12.5 Hct 36.8 L MCV 100.3 H MCH 34.1 H MCHC 34.0 RDW 13.4 RDW Differential 47.7 H Plt Count 185 MPV 10.3 Medical Necessity - Tobacco Use Smoking Status: Never smoker Tobacco Use: Non-smoker Assessment/Plan All Active Problems (Last Reviewed 11/06/18 @ 09:59 by Elena Hartmann) Rectocele (Acute) Stress incontinence (Acute) Urethral hypermobility (Acute) Sinusitis chronic, frontal (Acute) Postmenopausal bleeding (Acute) BOOP (bronchiolitis obliterans with organizing pneumonia) (Resolved) Psoriasis (Acute) History of Hodgkin's lymphoma (Acute) Home today after PVR done, voiding trial complete. Keflex 3 days. Pain meds. F/U in office in 2 weeks unless home with chung.
[2018-11-17] MEDS: Docusate Sodium 100 MG Capsule PO (09:30)
[2018-11-17] MEDS: hydroCHLOROthiazide 12.5mg 12.5 MG PO (09:30)
[2018-11-17] MEDS: Metoprolol Tartrate 50 MG Tablet PO (09:31)
[2018-11-17] MEDS: Acyclovir 200 MG Capsule PO (09:32)
[2018-11-17] MEDS: Lisinopril 5 MG Tablet PO (09:32)
[2018-11-17] MEDS: Cephalexin 500 MG Capsule PO (09:33)
--- NOTE | 2018-11-17 10:07 | NURSING ---
Since beginning of shift, this nurse noticed Continuous Spot was not working on monitor. When this nurse went into room, it was off. This nurse obtained spo2 at bedside and was 90% on RA at rest but oxygen was flowing/on but not on pt. This nurse got pt up to walk in [place] and became very SOB. THis nurse happened to have portable continuous spo2 on pt and she went frm 90% down to 85% while walking. Pt states she gets like that at home when she walks or gets SOB. PT states that she wears oxygen but only at night or puts it on at home when she gets SOB with exertion. Pt talked with Veena PAULSON:oxygen at home.
--- NOTE | 2018-11-17 10:17 | CASEMGMT ---
Addendum entered by Veena Ugarte 11/17/18 10:37: The correct spelling of the cord tire builder is Dr. Jacobo Huffman with [facility] in [place]. MARY Mascorro, FLASK MAKER Original Note: SW spoke w/RN, pt is getting short of breath up walking without oxygen. Pt informed RN she does use oxygen at night but not during the day. Pt told RN that she gets short of breath at home walking without oxygen. SW spoke w/pt and in room for clarification and to assess for homegoing needs. Pt does have a cord tire builder, Dr. Jaramillo. Pt's PCP is Dr. Irving, pharmacy is [facility] in [place]. Pt is normally independent at home, lives home w/ in a two story home. Pt does have to go up stairs to go to bed and gets short of breath going upstairs. cooks and they both clean. The cord tire builder ordered home O2 for at night only. states pt has BOOP and the doctor thought that this would help her heart at night. SW asked what company they use, states they own the concentrator. Pt does not have any portability however. SW asked about getting oxygen ordered for her through a company for use during the day, and if she would use it. Pt states that she would. Pt states she does not use it at home even when getting short of breath with ambulation, she just sits down. SW asked pt about when she is out if she gets short of breath. Pt states she does, states sometime she just says, take me home! SW explained we can complete the oxygen testing so we can get her portable tanks. Pt in agreement with this. She would like [employer], states he uses [employer] and they are in network with their insurance. SW explained we can look into this. SW asked RN to complete the home oxygen testing. CM looking into ordering the oxygen. MARY Mascorro, FLASK MAKER
--- NOTE | 2018-11-17 11:09 | NURSING ---
Pt walked in [place] with assistance from this nurse. Voided 100cc and then this nurse bladder scanned for 69ml. This nurse has a page out via sticker machine operator to inform Dr. Acuna of findings.
--- NOTE | 2018-11-17 11:13 | NURSING ---
Dr. Acuna called back and is okay with her going home and to follow up in 2 weeks.
--- NOTE | 2018-11-17 11:45 | CASEMGMT ---
Addendum entered by Torito Wynne 11/17/18 14:00: Call received from Dr. Acuna's office. Per physician she would like medical person (hospitalist) to see pt and order oxygen. DYLAN PHELPS spoke with pt and her and they do not agree with this. states he can get his portable oxygen tank from home and take pt home, she has concentrator at home, then they will f/u with their culinary artist. Charge nurse Corrie TEJEDA. Original Note: Addendum entered by Torito Wynne 11/17/18 13:19: Call to office- was told by staff they will fax back to hospital once signed. Spoke with pt and her who are impatient to return home. states he wants to go home and tile picker his portable tank for patient. DYLAN PHELPS advised that recommendation is to wait until [employer] is set up. For now, they are continuing to wait @ hospital. Aleks TEJEDA Original Note: DYLAN PHELPS Note. pt will need oxygen to go home. Script faxed to Dr. Acuna's office and call to [facility] to notify of script being sent. Plan is for Home O2 through [facility]. Aleks TEJEDA
[2018-11-17 12:00] LABS: Bedside Glucose 157 mg/dL (70-110)
--- NOTE | 2018-11-17 12:08 | NURSING ---
Dr. Link aware of discharge order from Dr. Acuna. Dr. Link is okay with pt being discharged.
--- NOTE | 2018-11-24 12:51 | PCM.HP.STD ---
Problem List (1) Rectocele Status: Acute (2) Stress incontinence Status: Acute (3) Urethral hypermobility Status: Acute History of Present Illness Date of Admission: 11/16/18 The patient is a 63 year old F presenting for surgical intervention for posterior repair and mid urethral sling insertion with cystoscopy following hysterectomy. She was appropriately evaluated in the office with urodynamics and office cystoscopy. Informed consent was obtained. She has no history of issues with anesthesia. Have a latex allergy. Past Medical History Past Medical History (Chronic Problems): Chronic Problems (Last Reviewed 11/06/18 @ 09:59 by Elena Hartmann) Endometrial hyperplasia without atypia, simple (Chronic) plan hysterectomy Frequent headaches (Chronic) GERD (gastroesophageal reflux disease) (Chronic) Hypertension (Chronic) Cataracts, bilateral (Chronic) Seasonal allergies (Chronic) Depression with anxiety (Chronic) Diverticulitis (Chronic) Fatty liver disease, nonalcoholic (Chronic) Medical History: Medical History (Last Reviewed 11/24/18 @ 12:53 by Jodi Acuna MD) Frequent headaches (Chronic) R51 GERD (gastroesophageal reflux disease) (Chronic) K21.9 Psoriasis (Acute) L40.9 Hypertension (Chronic) I10 Cataracts, bilateral (Chronic) H26.9 Seasonal allergies (Chronic) J30.2 Depression with anxiety (Chronic) F41.8 Diverticulitis (Chronic) K57.92 History of Hodgkin's lymphoma (Acute) Z85.71 Fatty liver disease, nonalcoholic (Chronic) K76.0 SOFÍA (obstructive sleep apnea) G47.33 Diabetes mellitus E11.9 Allergies bacitracin Allergy (Severe, Verified 11/06/18 09:59) Hives Latex, Natural Rubber Allergy (Severe, Verified 11/06/18 09:59) rash neomycin [From Neosporin ([id number])] Allergy (Severe, Verified 11/06/18 09:59) blisters polymyxin B [From Neosporin ([id number])] Allergy (Severe, Verified 11/06/18 09:59) blisters clindamycin Allergy (Unknown, Verified 11/09/18 13:13) Hives codeine Adverse Reaction (Severe, Verified 11/09/18 13:13) dizziness HEART PALPATAIONS Home Medications: Ambulatory Orders Medication Instructions Recorded calcium carbonat and lactate 200 1 tab PO PRN PRN 01/05/18 mg calcium-vitamin D3 250 unit tablet metoprolol tartrate 50 mg tablet 50 mg PO BID 01/05/18 mupirocin 2 % topical cream 1 applic TOPICAL BID PRN 01/05/18 nystatin 100,000 unit/gram topical 1 applic TOPICAL BID 01/05/18 powder nystatin-triamcinolone topical 1 applic TOPICAL PRN PRN 01/05/18 cream polyethylene glycol 3350 17 17 g PO QDAY PRN 01/05/18 gram/dose oral powder ropinirole 2 mg tablet 2 mg PO QHS tab 01/05/18 valacyclovir 500 mg tablet 500 mg PO DAILY 01/05/18 potassium chloride ER 20 mEq 20 meq PO QDAY #90 tab 05/04/18 tablet,extended release(part/cryst) Omeprazole Magnesium [Prilosec Otc] 20 mg PO QHS 05/25/18 hydrochlorothiazide 12.5 mg tablet 12.5 mg PO QAM #90 tab 06/05/18 norethindrone acetate 5 mg tablet 5 mg PO BID #60 tab 09/19/18 blood sugar diagnostic strips See Dose Instructions .ROUTE 10/06/18 .MEDSUPPLY #50 ea blood-glucose meter kit See Dose Instructions .ROUTE 10/06/18 .MEDSUPPLY #1 ea lancets 28 gauge See Dose Instructions .ROUTE 10/06/18 .MEDSUPPLY #50 ea lisinopril 5 mg tablet 5 mg PO DAILY #90 tab 10/06/18 metformin ER 500 mg 500 mg PO QPM #30 tab 10/06/18 tablet,extended release 24 hr triamcinolone acetonide 0.1 % 1 applic TOPICAL QDAY #30 g 10/06/18 topical cream duloxetine 60 mg capsule,delayed 60 mg PO QHS #90 cap 10/23/18 release Estradiol [Divigel] 1 each TD DAILY 11/09/18 Naproxen [Naprosyn] 250 - 500 mg PO Q8H PRN PRN #30 11/16/18 tablet Docusate Sodium [Colace] 100 mg PO BID 30 Days #60 cap 11/17/18 Surgical History: Surgical History (Last Reviewed 11/06/18 @ 09:59 by Elena Hartmann) History of lymph node biopsy Z98.890 History of tonsillectomy Z90.89 History of tubal ligation Z98.51 S/P dilation and curettage Onset Date: ~06/01/18 Z98.890 hysterscopy polypectomy Smoking Status: Never smoker Tobacco Use: Non-smoker Review of Systems Constitutional: Denies: Anorexia, Chills, Fever, Night Sweats Eyes: Denies: Blurred vision, Double vision HEENT: Denies: Difficulty Hearing, Difficulty Swallowing Cardiovascular: Denies: Chest Pain Respiratory: Denies: Cough, Shortness of Breath Gastrointestinal: Denies: Abdominal Pain Genitourinary: Reports: Incontinence. Denies: Dysuria, Frequency, Hematuria Musculoskeletal: Denies: Joint Tenderness, Muscle pain Skin: Denies: Rash, Skin Changes Neurological: Denies: Balance problems, Confusion Endocrine: Denies: Change in Body Habitus Hematologic/ Lymphatic: Denies: Easy Bleeding VTE Information - Inpt Only VTE Present on Admission: Yes VTE Mechan Device Prophylaxis: SCD's VTE Pharm Prophylaxis ordered?: Yes - Physical Exam General: Alert, Oriented x3, Cooperative, No apparent distress HEENT: Atraumatic, Normocephalic Oral: Moist Mucosa Neck: Supple Lungs: Clear to auscultation, Normal air movement Cardiovascular: Regular rate, Regular Rhythm Abdomen: Soft, Non Tender, Non-Distended Extremities: No clubbing Skin: No rashes Musculoskeletal: No Muscle Wasting Lymphatic: No Cervical, Supraclavicular, or Inguinal Adenopathy Neurological: Cranial nerves II-XII grossly intact, Neuro grossly intact Psych/Mental Status: Normal Affect, Alert and oriented to time, place, person, mood and affect Vital Signs Temp Pulse Resp BP Pulse Ox 98.5 F 81 18 163/90 H 92 11/17/18 14:21 11/17/18 14:21 11/17/18 14:21 11/17/18 14:21 11/17/18 14:21 Oxygen Flow Rate (L/min) [ 2 AMBULATION with Oxygen] Oxygen Flow Rate (L/min) 2 Oxygen Delivery Method Room Air Weight: 97.3 kg Body Mass Index (BMI) 41.8 Finger Stick Blood Glucose 168 Assessment/Plan All Active Problems (Last Reviewed 11/06/18 @ 09:59 by Elena Hartmann) Rectocele (Acute) Stress incontinence (Acute) Urethral hypermobility (Acute) Sinusitis chronic, frontal (Acute) Postmenopausal bleeding (Acute) BOOP (bronchiolitis obliterans with organizing pneumonia) (Resolved) Psoriasis (Acute) History of Hodgkin's lymphoma (Acute) surgical intervention with for hysterectomy, rectocele repair, midurethral sling insertion and cystoscopy.
== END 2018-11-17 14:15 | disposition home or self-care (01) ==
LOC: SDC 05:29 → AC 05:29 → MS2 08:30
PROVIDERS: Nurse Practitioner Family; Family Provider Family Medicine; PCP Family Medicine; Referring Provider Obstetrics & Gynecology; Visit Provider Obstetrics & Gynecology
PROC: (CPT 58260; principal; 2018-11-16 07:10)
DX: N85.01 Benign endometrial hyperplasia (principal); N83.8 Other noninflammatory disorders of ovary, fallopian tube and broad ligament; N95.0 Postmenopausal bleeding; N36.41 Hypermobility of urethra; N39.3 Stress incontinence (female) (male); N85.2 Hypertrophy of uterus; E11.9 Type 2 diabetes mellitus without complications; J32.1 Chronic frontal sinusitis; H26.9 Unspecified cataract; F41.8 Other specified anxiety disorders; K76.0 Fatty (change of) liver, not elsewhere classified; K21.9 Gastro-esophageal reflux disease without esophagitis; I10 Essential (primary) hypertension; K57.92 Diverticulitis of intestine, part unspecified, without perforation or abscess without bleeding; Z98.51 Tubal ligation status; Z85.71 Personal history of Hodgkin lymphoma
CPT/HCPCS: 52005; 57250; 57288; 58260; 36415; 80048; 82962; 85027; 86850; 86900; 88307; 93005; 94762; 97802; J7120; A4216; C1758; J2405

== ENCOUNTER → 2018-11-28 16:21 | Outpatient (CLI) | payer MEDICARE, SELFPAY ==
[2018-11-28 15:49] VITALS: BMI 41.8
--- NOTE | 2018-11-28 16:24 | RAD_ITS ---
STUDY: X-RAY CHEST REASON FOR EXAM: Female, 63 years old. Dyspnea. TECHNIQUE: PA and lateral chest. COMPARISON: None. FINDINGS: The lungs are clear and expanded. There is no demonstrated pleural abnormality. Normal size heart. Normal mediastinum and karolyn. Normal visualized pulmonary arteries. Normal visualized aortic arch and descending thoracic aorta. Normal visualized thoracic spine. Normal visualized ribs, clavicles, and shoulders. There is no demonstrated abnormality of the visualized soft tissue structures of the upper abdomen. RAD/Chest PA and Lateral IMPRESSION: No acute cardiopulmonary disease. Electronically Signed: Ebenezer Monroe MD at 7:46 EST , Service support ,
== END ==
PROVIDERS: Family Provider Family Medicine; PCP Family Medicine; Referring Provider Family Medicine; Visit Provider Family Medicine
DX: J84.89 Other specified interstitial pulmonary diseases (principal)
CPT/HCPCS: 71046

== ENCOUNTER → 2018-12-05 09:05 | Outpatient (CLI) | payer MEDICARE, SELFPAY ==
[2018-11-28 15:49] VITALS: BMI 41.8
[2018-11-30 13:05] VITALS: BMI 41.8
--- NOTE | 2018-12-05 14:45 | PFTCOMP_ITS ---
COMPLETE PULMONARY FUNCTION TEST INTERPRETATION Brief HPI: Patient is a 63 year old female, currently under the care of Dr. Irving, who presents to [facility] for complete pulmonary function tests secondary to diagnosis of dyspnea. Respiratory therapist reports good effort and reproducible results. Interpretation: Forced expiration spirometry shows no large airways obstructive ventilatory defect with an FEV1 of 71% predicted. There is no significant bronchodilator response by strict ATS criteria. Spirograms are of good quality and plateau normally. The respiratory flow volume loop shows a normal pattern. Lung volumes by body plethysmography show a decreased total lung capacity at 2.99 L, 73% predicted. All other lung volumes are reduced symmetrically. Diffusion capacity by carbon monoxide is decreased at 50% predicted. The airway resistance is normal. Compared to previous pulmonary function tests from 01/24/2018, there has been a significant reduction in lung volumes. Impression: Mild restrictive ventilatory defect with a symmetric reduction diffusing capacity in a pattern consistent with interstitial lung disease versus uncompensated congestive heart failure.
== END ==
PROVIDERS: Family Provider Family Medicine; PCP Family Medicine; Referring Provider Family Medicine; Visit Provider Family Medicine
DX: R06.09 Other forms of dyspnea (principal)
CPT/HCPCS: 94060; 94726; 94729

== ENCOUNTER → 2018-12-06 12:08 | Outpatient (CLI) | payer MEDICARE, SELFPAY ==
[2018-11-28 15:49] VITALS: BMI 41.8
[2018-11-30 13:05] VITALS: BMI 41.8
[2018-12-06 12:51] VITALS: PULSE 113; PULSE 115; PULSE 116; PULSE 119; PULSE 122; PULSE 127; PULSE 86; PULSE 90; O2SAT 88; O2SAT 89; O2SAT 90; O2SAT 92; O2SAT 94; O2SAT 95; O2SAT 96; O2SAT 98
--- NOTE | 2018-12-06 12:54 | CPS ---
Pt started testing on room air, at the 4th minute the patient had walked 590 ft (10 laps), SpO2 88%, HR 127. Placed patient on 2 lpm O2 at this time, patient SpO2 recovered to 97% and HR 112. Patient was able to walk an additional 354 ft to complete the 6 minute walk, SpO2 94% or greater, HR 115. Patient states she follows up with Dr. David Irving in a couple weeks and already has an O2 concentrator and some nasal cannulas at home.
--- NOTE | 2018-12-07 11:37 | PCM.PSN.6M ---
PSN 6 Minute Walk Test - 6 Minute Walk Test 6 Minute Walk Test: 6 Minute Walk Test PSN:6-Minute Walk Test Start: 12/06/18 12:51 Freq: Status: Active Protocol: [id number] Document 12/06/18 12:51 EFREN (Rec: 12/06/18 13:01 EFREN [id number]) 6 Minute Walk Test Date Performed 12/06/18 Time Performed 12:20 Height 5 ft Weight: 97.522 kg Weight in Pounds 215.[address]: David Irving Assistive device used: None Pre-test Oxygen Delivery Method Room Air Pulse Ox (%) 95 Pulse Rate (60-100 beats/min) 86 Dyspnea Anabel Scale (0-10) 0 Exertion Anabel Scale (6-20) 6 1st minute Oxygen Delivery Method Room Air Pulse Ox (%) 92 Pulse Rate (60-100 beats/min) 116 H 2nd minute Oxygen Delivery Method Room Air Pulse Ox (%) 90 Pulse Rate (60-100 beats/min) 119 H 3rd minute Oxygen Delivery Method Room Air Pulse Ox (%) 89 Pulse Rate (60-100 beats/min) 122 H 4th minute Oxygen Delivery Method Room Air Pulse Ox (%) 88 Pulse Rate (60-100 beats/min) 127 H Dyspnea Anabel Scale (0-10) 4 5th minute Oxygen Flow Rate (L/min) (L/min) 2 Oxygen Delivery Method Nasal Cannula Pulse Ox (%) 96 Pulse Rate (60-100 beats/min) 113 H 6th minute Oxygen Flow Rate (L/min) (L/min) 2 Oxygen Delivery Method Nasal Cannula Pulse Ox (%) 94 Pulse Rate (60-100 beats/min) 115 H Dyspnea Anabel Scale (0-10) 3 Exertion Anabel Scale (6-20) 13 Post-test Oxygen Flow Rate (L/min) (L/min) 2 Oxygen Delivery Method Nasal Cannula Pulse Ox (%) 98 Pulse Rate (60-100 beats/min) 90 Full Laps Walked 16 Partial Lap, Number of Tiles Walked 0 Total Distance Walked (ft) 944 12/06/18 12:54 Cardiopulmonary Services by Debby Crump Pt started testing on room air, at the 4th minute the patient had walked 590 ft (10 laps), SpO2 88%, HR 127. Placed patient on 2 lpm O2 at this time, patient SpO2 recovered to 97% and HR 112. Patient was able to walk an additional 354 ft to complete the 6 minute walk, SpO2 94% or greater, HR 115. Patient states she follows up with Dr. David Irving in a couple weeks and already has an O2 concentrator and some nasal cannulas at home. Initialized on 12/06/18 12:54 - END OF NOTE - Interpretation Interpretation: The patient was noted to be 95% on room air. However, in the fourth minute of ambulation, patient's saturations dropped to 88%. This was notable to be associated with tachycardia at a peak heart rate of 127 bpm. Patient improved to 97% after 2 L and finished a total of 6 minutes. In total, patient traveled 944 feet over the course of 6 minutes without an assistive device or break. - Recommendations Recommendations: The patient requires no supplemental oxygen at rest, but should be using 2 L nasal cannula with exertion. Patient may benefit from cardiac evaluation given tachycardia.
== END ==
PROVIDERS: Family Provider Family Medicine; PCP Family Medicine; Referring Provider Family Medicine; Visit Provider Family Medicine
DX: R06.00 Dyspnea, unspecified (principal); E11.9 Type 2 diabetes mellitus without complications
CPT/HCPCS: 94618; G0108

== ENCOUNTER 2018-12-06 13:56 | Outpatient (RCR) | payer MEDICARE, SELFPAY ==
[2018-11-30 13:05] VITALS: BMI 41.8
== END 2018-12-14 23:59 ==
LOC: DC 13:56
PROVIDERS: Family Provider Family Medicine; PCP Family Medicine; Visit Provider Family Medicine
DX: E11.9 Type 2 diabetes mellitus without complications (principal); Z71.3 Dietary counseling and surveillance
CPT/HCPCS: G0108

== ENCOUNTER 2018-12-22 10:16 | Emergency (ER) | payer MEDICARE, SELFPAY ==
[2018-11-30 13:05] VITALS: BMI 41.8
[2018-12-22] VITALS (9 sets, daily range): BP systolic 167–203; BP diastolic 74–105; PULSE 68–97; RESP 16–20; TEMP 36.7; O2SAT 95–97; BMI 41.2
--- NOTE | 2018-12-22 11:04 | EKG12_ITS ---
Test Reason : HYPERTENSION Blood Pressure : / mmHG Vent. Rate : 078 BPM Atrial Rate : 078 BPM P-R Int : 146 ms QRS Dur : 066 ms QT Int : 376 ms P-R-T Axes : 049 -02 -19 degrees QTc Int : 428 ms Normal sinus rhythm Voltage criteria for left ventricular hypertrophy Abnormal ECG Confirmed by MERI GEE, DIANE ([id number]), food expeditor FELICE HARE ([id number]) on 12/26/2018 9:12:42 AM Referred By: BB Confirmed By:DIANE JEREZ MD
--- NOTE | 2018-12-22 11:06 | CT_ITS ---
STUDY: CT BRAIN WITHOUT CONTRAST REASON FOR EXAM: Female, 63 years old. Headaches. Hypertension. History of lymphoma. RADIATION DOSAGE (If Supplied By Facility): CTDIvol = ( 44.99 ) mGy, DLP = ( 745.49 ) mGycm TECHNIQUE: Transaxial CT imaging of the brain was performed without administration of intravenous contrast material. Individualized dose optimization techniques were used for this CT. COMPARISON: None. FINDINGS: Normal soft tissue structures. Normal calvarium. There is mild cerebral atrophy with widening of the extra-axial spaces and ventricular dilatation. Normal white matter tracts of the cerebral hemispheres. Normal basal ganglia and thalami. Normal brainstem. Normal cerebellum. There is no intracranial hemorrhage. There are no findings of an acute ischemic infarction. Atherosclerotic calcification of the cavernous portions of the internal carotid arteries bilaterally. Partial opacification of the sphenoid sinus as well as the maxillary sinuses worse on the left side. CT/Brain/Head without Contrast IMPRESSION: Chronic involutional changes of the brain. Sinusitis. Electronically Signed: Ino Valenzuela, at 12:43 EST , Service support ,
--- NOTE | 2018-12-22 11:07 | ED.VIS.GEN ---
History of Present Illness Chief Complaint: Hypertension Informant: Patient Onset: Weeks - 3 Context: Gradual Onset Timing: Continuous Associated Symptoms: headache, nausea, blurry vision, facial flushing Narrative: Patient states her blood pressure has been elevated for the last several months. For the last several weeks she has been having intermittent symptoms that she feels when her blood pressure spikes, which she has determined by taking her blood pressure at home. She gets headaches, facial flushing, some nausea. Her headache is mostly bifrontal and retro-orbital along with some photophobia, but it is also occipital. It is bilateral. She denies any peripheral neurologic symptoms. She does get some transient mild vertigo when she does certain head movements, especially when extending her head to neutral after bending over, but that is not new or worse in the last several weeks, and is more chronic. Sometimes she feels dyspneic but states that is been related to her BOOP that she has been dealing with for the past 10 years and is slated to see a e commerce merchant. She states her dyspnea is no worse when her blood pressure is up and she gets no chest pain. Her doctor changed her medications 2 or 3 weeks ago, however her blood pressure has still been in the 190s often times since then. - Past Medical History (1) Rectocele Status: Chronic (2) Stress incontinence Status: Chronic (3) Urethral hypermobility Status: Chronic (4) Endometrial hyperplasia without atypia, simple Status: Chronic Comment: plan hysterectomy (5) BOOP (bronchiolitis obliterans with organizing pneumonia) Status: Chronic (6) Frequent headaches Status: Chronic (7) GERD (gastroesophageal reflux disease) Status: Chronic (8) Hypertension Status: Chronic (9) Cataracts, bilateral Status: Chronic (10) Seasonal allergies Status: Chronic (11) Depression with anxiety Status: Chronic (12) Diverticulitis Status: Chronic (13) History of Hodgkin's lymphoma Status: Resolved (14) Fatty liver disease, nonalcoholic Status: Chronic Past Medical History - Allergies and Home Meds Allergies/Adverse Reactions: Allergies bacitracin Allergy (Severe, Verified 12/22/18 10:21) Hives Latex, Natural Rubber Allergy (Severe, Verified 12/22/18 10:21) rash neomycin [From Neosporin ([id number])] Allergy (Severe, Verified 12/22/18 10:21) blisters polymyxin B [From Neosporin ([id number])] Allergy (Severe, Verified 12/22/18 10:21) blisters clindamycin Allergy (Unknown, Verified 12/22/18 10:21) Hives codeine Adverse Reaction (Severe, Verified 12/22/18 10:21) dizziness HEART PALPATAIONS Primary Care Physician: David Irving DO [Primary Care Provider] - Smoking Status: Never smoker Drugs: None Review of Systems General: Denies: Chills, Fever, Sweats Eyes: Reports: Blurred Vision - bilaterally. Denies: Diplopia ENT: Denies: Rhinorrhea, Sore throat Cardiovascular: Denies: Chest pain, Palpitations Respiratory: Reports: Dyspnea. Denies: Cough Gastrointestinal: Reports: Nausea. Denies: Abdominal pain, Vomiting, Diarrhea, Melena, Hematochezia Genitourinary: Denies: Dysuria, Hematuria, Frequency Musculoskeletal: Denies: Neck pain, Back pain, Extremity Pain Skin: Denies: Rash, Wounds Neurological: Reports: Headache, - - occasional vertigo. no confusion.. Denies: Weakness, Parasthesia, Numbness Physical Exam Vital Signs/Narrative: Vital Signs Temp Pulse Resp BP Pulse Ox 12/22/18 10:17 98.0 F 97 20 H 203/101 H 95 Inital Vital Signs reviewed: Yes General: Well nourished, Well developed, Obese, No Acute Distress Head: Normocephalic, Atraumatic Eyes: Perrl, EOMI ENT: Moist mucous membranes, No rhinorrhea Neck: Supple, Nontender Cardiovascular: Regular rate, Regular rhythm, No murmurs Respiratory: No distress, Chest nontender, Wheezing - slight end-expiratory bilat. no rales/rhonchi. Abdomen: Soft, Nontender, Nondistended, Normal bowel sounds Back: Nontender, Normal Inspection Extremities: Nontender, No edema Skin: Normal color, No rash Neurological: Alert, Oriented x3, Cranial nerves II-XII grossly intact, Normal Strength, Normal Sensation Psychological: Normal affect, Normal Mood Diagnostic/Tx/Re-eval Impressions Brain CT 12/22/18 11:06 IMPRESSION: Chronic involutional changes of the brain. Sinusitis. Electronically Signed: Ino Valenzuela, at 12:43 EST , Service support , 12/22/18 11:06 Brain/Head without Contrast [CT] Stat Laboratory Results 12/22/18 12/22/18 12/22/18 11:20 11:20 11:40 WBC 7.9 RBC 4.45 Hgb 14.4 Hct 43.3 MCV 97.3 MCH 32.4 H MCHC 33.3 RDW 13.7 RDW Differential 48.8 H Plt Count 282 MPV 9.8 Immature Gran % (Auto) 0.100 Neut % (Auto) 45.5 L Lymph % (Auto) 42.6 H Rout[place] % (Auto) 7.3 Eos % (Auto) 3.6 Baso % (Auto) 0.9 Absolute Neuts (auto) 3.6 Absolute Lymphs (auto) 3.35 Total Counted Not Reportable Sodium 137 Potassium 3.5 Chloride 104 Carbon Dioxide 26.0 Anion Gap 7 BUN 9 Creatinine 0.74 Estim Creat Clear Calc 57.34 Est GFR (MDRD) Af Amer 103 Est GFR (MDRD) Non-Af 85 BUN/Creatinine Ratio 12.2 Glucose 96 Calcium 8.4 L Urine Color Yellow Urine Clarity Sl. Cloudy Urine pH 6.5 Ur Specific [place] 1.010 Urine Protein 30 H Urine Glucose (UA) Normal Urine Ketones Negative Urine Occult Blood 10 H Urine Nitrite Negative Urine Bilirubin Negative Urine Urobilinogen 1 H Ur Leukocyte Esterase 100 H - Medical Decision Making Other than proteinuria, the patient's workup shows no acute organ injury. Her CT head is negative. Initially gave her hydralazine 10 mg IV, her pressure came down but not very much so I additionally gave her labetalol 10 mg IV and her pressure now is steadily dropping and she is feeling better. She is at 160 or below. She is stable to go home. I tried to discuss with her PCP, however he is on vacation and not easily reachable. I will have her double her HCTZ and lisinopril at this time, to 25 mg and 40 mg respectively, and follow-up as an outpatient. She is comfortable with this plan. ED Disposition - Plan for ED Patient: Disposition: Home or Assisted Living Diagnosis: Cephalgia, Accelerated hypertension, Proteinuria Instructions: ED Hypertension Conf Out Of Control Referrals: David Irving DO [Primary Care Provider] - 1 Week Additional Instructions: Double your HCTZ to 25 mg once daily and/or lisinopril to 40 mg once daily and follow-up with your doctor. Leave your other medications alone for now.
--- NOTE | 2018-12-22 11:12 | ED.DCSUM_ITS ---
History of Present Illness Chief Complaint: Hypertension Informant: Patient Onset: Weeks - 3 Context: Gradual Onset Timing: Continuous Associated Symptoms: headache, nausea, blurry vision, facial flushing Narrative: Patient states her blood pressure has been elevated for the last several months. For the last several weeks she has been having intermittent symptoms that she feels when her blood pressure spikes, which she has determined by taking her blood pressure at home. She gets headaches, facial flushing, some nausea. Her headache is mostly bifrontal and retro-orbital along with some photophobia, but it is also occipital. It is bilateral. She denies any peripheral neurologic symptoms. She does get some transient mild vertigo when she does certain head movements, especially when extending her head to neutral after bending over, but that is not new or worse in the last several weeks, and is more chronic. Sometimes she feels dyspneic but states that is been related to her BOOP that she has been dealing with for the past 10 years and is slated to see a tire changer. She states her dyspnea is no worse when her blood pressure is up and she gets no chest pain. Her doctor changed her medications 2 or 3 weeks ago, however her blood pressure has still been in the 190s often times since then. - Past Medical History (1) Rectocele Status: Chronic (2) Stress incontinence Status: Chronic (3) Urethral hypermobility Status: Chronic (4) Endometrial hyperplasia without atypia, simple Status: Chronic Comment: plan hysterectomy (5) BOOP (bronchiolitis obliterans with organizing pneumonia) Status: Chronic (6) Frequent headaches Status: Chronic (7) GERD (gastroesophageal reflux disease) Status: Chronic (8) Hypertension Status: Chronic (9) Cataracts, bilateral Status: Chronic (10) Seasonal allergies Status: Chronic (11) Depression with anxiety Status: Chronic (12) Diverticulitis Status: Chronic (13) History of Hodgkin's lymphoma Status: Resolved (14) Fatty liver disease, nonalcoholic Status: Chronic Past Medical History - Allergies and Home Meds Allergies/Adverse Reactions: Allergies bacitracin Allergy (Severe, Verified 12/22/18 10:21) Hives Latex, Natural Rubber Allergy (Severe, Verified 12/22/18 10:21) rash neomycin [From Neosporin ([id number])] Allergy (Severe, Verified 12/22/18 10:21) blisters polymyxin B [From Neosporin ([id number])] Allergy (Severe, Verified 12/22/18 10:21) blisters clindamycin Allergy (Unknown, Verified 12/22/18 10:21) Hives codeine Adverse Reaction (Severe, Verified 12/22/18 10:21) dizziness HEART PALPATAIONS Primary Care Physician: David Irving DO [Primary Care Provider] - Smoking Status: Never smoker Drugs: None Review of Systems General: Denies: Chills, Fever, Sweats Eyes: Reports: Blurred Vision - bilaterally. Denies: Diplopia ENT: Denies: Rhinorrhea, Sore throat Cardiovascular: Denies: Chest pain, Palpitations Respiratory: Reports: Dyspnea. Denies: Cough Gastrointestinal: Reports: Nausea. Denies: Abdominal pain, Vomiting, Diarrhea, Melena, Hematochezia Genitourinary: Denies: Dysuria, Hematuria, Frequency Musculoskeletal: Denies: Neck pain, Back pain, Extremity Pain Skin: Denies: Rash, Wounds Neurological: Reports: Headache, - - occasional vertigo. no confusion.. Denies: Weakness, Parasthesia, Numbness Physical Exam Vital Signs/Narrative: Vital Signs Temp Pulse Resp BP Pulse Ox 12/22/18 10:17 98.0 F 97 20 H 203/101 H 95 Inital Vital Signs reviewed: Yes General: Well nourished, Well developed, Obese, No Acute Distress Head: Normocephalic, Atraumatic Eyes: Perrl, EOMI ENT: Moist mucous membranes, No rhinorrhea Neck: Supple, Nontender Cardiovascular: Regular rate, Regular rhythm, No murmurs Respiratory: No distress, Chest nontender, Wheezing - slight end-expiratory bilat. no rales/rhonchi. Abdomen: Soft, Nontender, Nondistended, Normal bowel sounds Back: Nontender, Normal Inspection Extremities: Nontender, No edema Skin: Normal color, No rash Neurological: Alert, Oriented x3, Cranial nerves II-XII grossly intact, Normal Strength, Normal Sensation Psychological: Normal affect, Normal Mood Diagnostic/Tx/Re-eval Impressions Brain CT 12/22/18 11:06 IMPRESSION: Chronic involutional changes of the brain. Sinusitis. Electronically Signed: Ino Valenzuela, at 12:43 EST , Service support , 12/22/18 11:06 Brain/Head without Contrast [CT] Stat Laboratory Results 12/22/18 12/22/18 12/22/18 11:20 11:20 11:40 WBC 7.9 RBC 4.45 Hgb 14.4 Hct 43.3 MCV 97.3 MCH 32.4 H MCHC 33.3 RDW 13.7 RDW Differential 48.8 H Plt Count 282 MPV 9.8 Immature Gran % (Auto) 0.100 Neut % (Auto) 45.5 L Lymph % (Auto) 42.6 H Dickey % (Auto) 7.3 Eos % (Auto) 3.6 Baso % (Auto) 0.9 Absolute Neuts (auto) 3.6 Absolute Lymphs (auto) 3.35 Total Counted Not Reportable Sodium 137 Potassium 3.5 Chloride 104 Carbon Dioxide 26.0 Anion Gap 7 BUN 9 Creatinine 0.74 Estim Creat Clear Calc 57.34 Est GFR (MDRD) Af Amer 103 Est GFR (MDRD) Non-Af 85 BUN/Creatinine Ratio 12.2 Glucose 96 Calcium 8.4 L Urine Color Yellow Urine Clarity Sl. Cloudy Urine pH 6.5 Ur Specific [place] 1.010 Urine Protein 30 H Urine Glucose (UA) Normal Urine Ketones Negative Urine Occult Blood 10 H Urine Nitrite Negative Urine Bilirubin Negative Urine Urobilinogen 1 H Ur Leukocyte Esterase 100 H - Medical Decision Making Other than proteinuria, the patient's workup shows no acute organ injury. Her CT head is negative. Initially gave her hydralazine 10 mg IV, her pressure came down but not very much so I additionally gave her labetalol 10 mg IV and her pressure now is steadily dropping and she is feeling better. She is at 160 or below. She is stable to go home. I tried to discuss with her PCP, however he is on vacation and not easily reachable. I will have her double her HCTZ and lisinopril at this time, to 25 mg and 40 mg respectively, and follow-up as an outpatient. She is comfortable with this plan. ED Disposition - Plan for ED Patient: Disposition: Home or Assisted Living Diagnosis: Cephalgia, Accelerated hypertension, Proteinuria Instructions: ED Hypertension Conf Out Of Control Referrals: David Irving DO [Primary Care Provider] - 1 Week Additional Instructions: Double your HCTZ to 25 mg once daily and/or lisinopril to 40 mg once daily and follow-up with your doctor. Leave your other medications alone for now.
[2018-12-22 11:33] LABS: Absolute Lymphocyte Count 3.35 X10^3/ul (0.83-4.51); Absolute Neutrophil Count 3.6 X10^3/uL (2.0-7.7); Basophil# 0.07 X10^3/uL; Basophil% 0.9 % (0-1); Eosinophil# 0.28 X10^3/uL; Eosinophils% 3.6 % (0-5); Hematocrit 43.3 % (37-47); Hemoglobin 14.4 g/dl (12.0-15.0); Lymphocyte # 3.35 X10^3/ul (4.0); Lymphocyte % 42.6 % (19-41); Mean Corp Hgb Conc 33.3 g/gl (32-36); Mean Corpuscular Hgb 32.4 pg (27.0-32.0); Mean Corpuscular Volume 97.3 fL (81-99); Mean Platelet Vol. 9.8 fl (6.2-12.0); Monocyte# 0.57 X10^3/uL; Monocyte% 7.3 % (0-10); Neutrophil # 3.58 X10^3/uL (2.7-7.7); Neutrophil % 45.5 % (47-70); Platelet Count 282 K/mm3 (150-450); RBC Distribution Width CV 13.7 % (11.6-14.6); RBC Distribution Width SD 48.8 fl (35.1-43.9); Red Blood Count 4.45 M/mm3 (4.2-5.4); White Blood Count 7.9 K/mm3 (4.4-11.0)
[2018-12-22 11:34] LABS: POSITIVE COUNT NO; POSITIVE DIFFERENTIAL NO; POSITIVE MORPHOLOGY NO
[2018-12-22] MEDS: hydrALAZINE 20 MG/ML Vial 10 MG IV (11:43)
[2018-12-22 11:53] LABS: Anion Gap 7 (5-15); BUN 9 mg/dL (7-18); BUN/Creat Ratio 12.2 RATIO (10-20); Calcium,Total 8.4 mg/dL (8.5-10.1); Chloride 104 mmol/L (98-107); Creatinine, Serum 0.74 mg/dL (0.55-1.02); EST Glomerular Filtration Rate 85 mL/min (>60); Est Glom Filt Rate - Afr Amer 103 mL/min (>60); Estimated Creatinine Clearance 57.34 ml/min; Glucose 96 mg/dL (74-106); Potassium 3.5 mmol/L (3.5-5.1); Sodium Level 137 mmol/L (136-145)
[2018-12-22 11:56] LABS: Color, Urine Yellow (Yellow); Glucose, Dipstick Normal (Normal); Ketone-Dipstick Negative (Negative); Leukocyte Esterase-Dipstick 100 /ul (Negative); Nitrite-Dipstick Negative (Negative); Occult Blood-Urine 10 /ul (Negative); Protein-Dipstick 30 mg/dl (Negative); Urine Bilirubin Dipstick Negative (Negative); Urine Clarity Sl. Cloudy (Clear); Urine Urobilinogen 1 mg/dl (Normal); Urine pH 6.5 (5.0 - 8.0)
[2018-12-22] MEDS: Acetaminophen 500 MG Tablet 1000 MG PO (13:09)
== END 2018-12-22 16:20 | disposition home or self-care (01) ==
PROVIDERS: Emergency Provider Emergency Medicine; Family Provider Family Medicine; PCP Family Medicine
DX: R51 Headache (principal); I10 Essential (primary) hypertension; R80.9 Proteinuria, unspecified; E66.9 Obesity, unspecified; K76.0 Fatty (change of) liver, not elsewhere classified; F41.8 Other specified anxiety disorders; H26.9 Unspecified cataract; K21.9 Gastro-esophageal reflux disease without esophagitis; J84.89 Other specified interstitial pulmonary diseases; N36.41 Hypermobility of urethra; N39.3 Stress incontinence (female) (male); N81.6 Rectocele; Z85.71 Personal history of Hodgkin lymphoma
CPT/HCPCS: 70450; 80048; 81002; 85025; 93005; 96374; 96375; 99284; A4216

== ENCOUNTER 2018-12-28 15:00 | Outpatient (RCR) | payer MEDICARE, SELFPAY ==
[2018-11-30 13:05] VITALS: BMI 41.8
[2018-12-22 10:17] VITALS: BMI 41.2
== END 2019-01-14 23:59 ==
LOC: DC 15:00
PROVIDERS: Family Provider Family Medicine; PCP Family Medicine; Visit Provider Family Medicine
DX: E11.9 Type 2 diabetes mellitus without complications (principal); Z71.3 Dietary counseling and surveillance
CPT/HCPCS: 97802; G0108

== ENCOUNTER → 2018-12-29 09:43 | Outpatient (CLI) | payer MEDICARE, SELFPAY ==
[2018-12-29 09:17] VITALS: BMI 41.2
[2018-12-29 13:03] LABS: Anion Gap 9 (5-15); BUN 12 mg/dL (7-18); Calcium,Total 9.1 mg/dL (8.5-10.1); Chloride 103 mmol/L (98-107); Creatinine, Serum 0.93 mg/dL (0.55-1.02); EST Glomerular Filtration Rate 65 mL/min (>60); Est Glom Filt Rate - Afr Amer 79 mL/min (>60); Glucose 225 mg/dL (74-106); Potassium 3.9 mmol/L (3.5-5.1); Sodium Level 138 mmol/L (136-145)
== END ==
PROVIDERS: Family Provider Family Medicine; PCP Family Medicine; Visit Provider Nurse Practitioner Family
DX: I10 Essential (primary) hypertension (principal)
CPT/HCPCS: 36415; 80048

== ENCOUNTER 2019-02-15 10:42 | Outpatient (RCR) | payer MEDICARE, SELFPAY ==
[2019-01-02 13:26] VITALS: BMI 41.2
[2019-02-07 10:57] VITALS: BMI 41.2
== END 2019-03-16 23:59 ==
LOC: DC 10:42
PROVIDERS: Family Provider Family Medicine; PCP Family Medicine; Visit Provider Family Medicine
DX: E11.9 Type 2 diabetes mellitus without complications (principal); Z71.3 Dietary counseling and surveillance
CPT/HCPCS: G0109

== ENCOUNTER 2019-04-26 13:25 | Outpatient (RCR) | payer MEDICARE, SELFPAY ==
[2019-02-07 10:57] VITALS: BMI 41.2
== END 2019-05-16 23:59 ==
LOC: DC 13:25
PROVIDERS: Family Provider Family Medicine; PCP Family Medicine; Visit Provider Family Medicine
DX: Z71.3 Dietary counseling and surveillance (principal); E11.9 Type 2 diabetes mellitus without complications
CPT/HCPCS: G0109

== ENCOUNTER 2019-07-19 09:32 | Outpatient (RCR) | payer MEDICARE, SELFPAY ==
[2019-02-07 10:57] VITALS: BMI 41.2
[2019-05-17 11:27] VITALS: BMI 41.2
== END 2019-08-16 23:59 ==
LOC: DC 09:32
PROVIDERS: Family Provider Family Medicine; PCP Family Medicine; Visit Provider Family Medicine
DX: Z71.3 Dietary counseling and surveillance (principal); E11.9 Type 2 diabetes mellitus without complications
CPT/HCPCS: G0109

== ENCOUNTER 2019-09-20 16:32 | Outpatient (RCR) | payer MEDICARE, SELFPAY ==
[2019-05-17 11:27] VITALS: BMI 41.2
[2019-08-23 10:47] VITALS: BMI 40.4
== END 2019-09-20 23:59 | disposition home or self-care (01) ==
LOC: DC 16:32
PROVIDERS: Family Provider Family Medicine; PCP Family Medicine; Visit Provider Family Medicine
DX: Z71.3 Dietary counseling and surveillance (principal); E11.9 Type 2 diabetes mellitus without complications
CPT/HCPCS: G0109

== ENCOUNTER → 2020-09-30 10:47 | Outpatient (CLI) | payer MEDICARE, SELFPAY ==
[2020-08-14 11:35] VITALS: BMI 38.5
[2020-09-30 12:18] LABS: Absolute Lymphocyte Count 1.91 X10^3/uL (0.83-4.51); Absolute Neutrophil Count 2.7 X10^3/uL (2.0-7.7); Basophil# 0.04 X10^3/uL; Basophil% 0.7 % (0-1); Eosinophil# 0.18 X10^3/uL; Eosinophils% 3.4 % (0-5); Hematocrit 30.9 % (37-47); Hemoglobin 9.9 g/dL (12.0-15.0); Lymphocyte # 1.91 X10^3/ul (4.0); Lymphocyte % 35.6 % (19-41); Mean Corpuscular Hgb 32.4 pg (27.0-32.0); Mean Platelet Vol. 10.5 fl (6.2-12.0); Monocyte# 0.56 X10^3/uL; Monocyte% 10.4 % (0-10); NRBC Flagged by Analyzer 0 % (0-5); Neutrophil # 2.66 X10^3/uL (2.7-7.7); Neutrophil % 49.7 % (47-70); Platelet Count 153 K/mm3 (150-450); RBC Distribution Width CV 15.2 % (11.6-14.6); RBC Distribution Width SD 56.8 fl (35.1-43.9); Red Blood Count 3.06 M/mm3 (4.2-5.4); White Blood Count 5.4 K/mm3 (4.4-11.0)
[2020-09-30 12:37] LABS: ALB/GLOB Ratio 0.7 RATIO (0.9-2.4); AST(SGOT) 45 U/L (15-37); Alanine Aminotransfer ALT/SGPT 19 U/L (13-56); Albumin, Serum 2.7 g/dL (3.2-5.0); Alkaline Phosphatase 233 U/L (45-117); Anion Gap 5 (5-15); BUN 7 mg/dL (7-18); Calcium,Total 8.5 mg/dL (8.5-10.1); Chloride 102 mmol/L (98-107); Creatinine, Serum 0.78 mg/dL (0.55-1.02); EST Glomerular Filtration Rate 79 mL/min (>60); Est Glom Filt Rate - Afr Amer 96 mL/min (>60); Globulin 3.8 g/dL (2.2-4.2); Glucose 90 mg/dL (74-106); Potassium 3.4 mmol/L (3.5-5.1); Protein, Total 6.5 g/dL (6.4-8.2); Sodium Level 140 mmol/L (136-145)
[2020-09-30 14:11] LABS: Ferritin 152 ng/mL (8-252); Iron 86 ug/dL (50-170); Iron Binding Capacity,Total 229 ug/dL (250-450); PERCENT IRON SATURATION 37.6 % (15.0-55.0)
== END ==
PROVIDERS: PCP Family Medicine; Referring Provider Nurse Practitioner Family; Visit Provider Nurse Practitioner Family
DX: D05.12 Intraductal carcinoma in situ of left breast (principal); I10 Essential (primary) hypertension; E11.9 Type 2 diabetes mellitus without complications; D64.9 Anemia, unspecified; E87.6 Hypokalemia
CPT/HCPCS: 36415; 80053; 82728; 83036; 83540; 83550; 85025

== ENCOUNTER → 2021-08-28 10:02 | Outpatient (CLI) | payer MEDICARE, SELFPAY | PROVIDERS: PCP Family Medicine; Referring Provider Family Medicine; Visit Provider Family Medicine | DX: Z20.828 Contact with and (suspected) exposure to other viral communicable diseases (principal) | CPT/HCPCS: 87635; U0005; U0003 ==

== ENCOUNTER → 2022-04-09 | Outpatient (CLI) | payer MEDICARE, SELFPAY ==
[2022-04-09 15:30] LABS: Absolute Lymphocyte Count 2.17 X10^3/uL (0.83-4.51); Absolute Neutrophil Count 3.3 X10^3/uL (2.0-7.7); Basophil# 0.07 X10^3/uL; Basophil% 1.1 % (0-1); Eosinophil# 0.17 X10^3/uL; Eosinophils% 2.8 % (0-5); Hemoglobin 12.8 g/dL (12.0-15.0); Lymphocyte # 2.17 X10^3/ul (0.83-4.51); Lymphocyte % 35.3 % (19-41); Mean Corp Hgb Conc 33.7 g/dL (32-36); Mean Corpuscular Hgb 33.1 pg (27.0-32.0); Mean Corpuscular Volume 98.2 fL (81-99); Mean Platelet Vol. 9.9 fl (6.2-12.0); Monocyte# 0.46 X10^3/uL; Monocyte% 7.5 % (0-10); NRBC Flagged by Analyzer 0 % (0-5); Neutrophil # 3.25 X10^3/uL (2.7-7.7); Platelet Count 161 K/mm3 (150-450); RBC Distribution Width CV 13.2 % (11.6-14.6); RBC Distribution Width SD 47.7 fl (35.1-43.9); Red Blood Count 3.87 M/mm3 (4.2-5.4); White Blood Count 6.1 K/mm3 (4.4-11.0)
[2022-04-09 15:47] LABS: ALB/GLOB Ratio 0.8 RATIO (0.9-2.4); AST(SGOT) 52 U/L (15-37); Alanine Aminotransfer ALT/SGPT 33 U/L (13-56); Albumin, Serum 3.1 g/dL (3.2-5.0); Alkaline Phosphatase 111 U/L (45-117); Anion Gap 5 (5-15); BUN 17 mg/dL (7-18); BUN/Creat Ratio 18.4 RATIO (10-20); Calcium,Total 9.1 mg/dL (8.5-10.1); Chloride 105 mmol/L (98-107); Creatinine, Serum 0.93 mg/dL (0.55-1.02); EST Glomerular Filtration Rate 65 mL/min (>60); Est Glom Filt Rate - Afr Amer 78 mL/min (>60); Globulin 3.8 g/dL (2.2-4.2); Glucose 180 mg/dL (74-106); Protein, Total 6.9 g/dL (6.4-8.2); Sodium Level 139 mmol/L (136-145)
== END | disposition home or self-care (01) ==
LOC: BIMLAB 11:48
PROVIDERS: PCP Family Medicine; Referring Provider Family Medicine; Visit Provider Family Medicine
DX: I10 Essential (primary) hypertension (principal); E11.9 Type 2 diabetes mellitus without complications; R53.83 Other fatigue
CPT/HCPCS: 36415; 80053; 82533; 85025

== ENCOUNTER → 2023-04-05 | Outpatient (CLI) | payer MEDICARE, SELFPAY ==
[2023-04-05 14:10] LABS: BUN 15 mg/dL (7-18); BUN/Creat Ratio 14.9 RATIO (10-20); Creatinine, Serum 1.01 mg/dL (0.55-1.02); EST Glomerular Filtration Rate 58 mL/min (>60); Est Glom Filt Rate - Afr Amer 71 mL/min (>60); Globulin 4.3 g/dL (2.2-4.2); Glucose 87 mg/dL (74-106); Protein, Total 7.3 g/dL (6.4-8.2)
[2023-04-05 14:11] LABS: ALB/GLOB Ratio 0.7 RATIO (0.9-2.4); AST(SGOT) 51 U/L (15-37); Alanine Aminotransfer ALT/SGPT 31 U/L (13-56); Alkaline Phosphatase 141 U/L (45-117); Anion Gap 6 (5-15); Calcium,Total 9.1 mg/dL (8.5-10.1); Chloride 105 mmol/L (98-107); Potassium 3.7 mmol/L (3.5-5.1); Sodium Level 140 mmol/L (136-145)
== END | disposition home or self-care (01) ==
LOC: BIMLAB 11:23
PROVIDERS: PCP Family Medicine; Referring Provider Family Medicine; Visit Provider Family Medicine
DX: R74.8 Abnormal levels of other serum enzymes (principal)
CPT/HCPCS: 36415; 80053

== ENCOUNTER → 2023-10-05 | Outpatient (CLI) | payer MEDICARE, SELFPAY ==
[2023-10-05 12:33] LABS: Absolute Lymphocyte Count 3.56 X10^3/uL (0.83-4.51); Absolute Neutrophil Count 5.1 X10^3/uL (2.0-7.7); Basophil# 0.09 X10^3/uL; Basophil% 0.9 % (0-1); Eosinophil# 0.25 X10^3/uL; Eosinophils% 2.6 % (0-5); Hematocrit 40.1 % (37-47); Hemoglobin 13.2 g/dL (12.0-15.0); Lymphocyte # 3.56 X10^3/ul (0.83-4.51); Lymphocyte % 36.9 % (19-41); Mean Corp Hgb Conc 32.9 g/dL (32-36); Mean Corpuscular Hgb 32.7 pg (27.0-32.0); Mean Corpuscular Volume 99.3 fL (81-99); Monocyte# 0.65 X10^3/uL; Monocyte% 6.7 % (0-10); NRBC Flagged by Analyzer 0 % (0-5); Neutrophil # 5.06 X10^3/uL (2.7-7.7); Neutrophil % 52.5 % (47-70); Platelet Count 166 K/mm3 (150-450); RBC Distribution Width CV 13.2 % (11.6-14.6); RBC Distribution Width SD 48.2 fl (35.1-43.9); Red Blood Count 4.04 M/mm3 (4.2-5.4); White Blood Count 9.7 K/mm3 (4.4-11.0)
[2023-10-05 12:50] LABS: ALB/GLOB Ratio 0.7 RATIO (0.9-2.4); AST(SGOT) 47 U/L (15-37); Alanine Aminotransfer ALT/SGPT 25 U/L (13-56); Albumin, Serum 3.1 g/dL (3.2-5.0); Alkaline Phosphatase 129 U/L (45-117); Anion Gap 9 (5-15); BUN 15 mg/dL (7-18); BUN/Creat Ratio 16.3 RATIO (10-20); Calcium,Total 8.8 mg/dL (8.5-10.1); Chloride 103 mmol/L (98-107); Creatinine, Serum 0.92 mg/dL (0.55-1.02); EST Glomerular Filtration Rate 65 mL/min (>60); Est Glom Filt Rate - Afr Amer 78 mL/min (>60); Globulin 4.2 g/dL (2.2-4.2); Glucose 120 mg/dL (74-106); Potassium 3.7 mmol/L (3.5-5.1); Protein, Total 7.3 g/dL (6.4-8.2); Sodium Level 142 mmol/L (136-145)
== END | disposition home or self-care (01) ==
LOC: BIMLAB 10:00
PROVIDERS: PCP Family Medicine; Visit Provider Family Medicine
DX: K74.60 Unspecified cirrhosis of liver (principal)
CPT/HCPCS: 36415; 80053; 85025

== ENCOUNTER → 2024-06-05 | Outpatient (CLI) | payer MEDICARE, SELFPAY ==
[2024-06-05 15:52] LABS: Mucous, Urine 0 SEEN /hpf (<or=2+); Red Blood Cells-Urine 0 SEEN /hpf (0-5); Squamous Epithelial Cells - UA 0 SEEN /hpf (5-10); White Blood Cells 0 SEEN /hpf (0-5)
[2024-06-05 16:46] LABS: Color, Urine Yellow (Yellow); Glucose, Dipstick Normal (Normal); Ketone-Dipstick Negative (Negative); Leukocyte Esterase-Dipstick 25 /ul (Negative); Nitrite-Dipstick Negative (Negative); Occult Blood-Urine Negative /ul (Negative); Protein-Dipstick 15 mg/dl (Negative); Urine Bilirubin Dipstick Negative (Negative); Urine Clarity Clear (Clear); Urine Urobilinogen Normal (Normal)
[2024-06-05 16:54] LABS: Bacteria 1+ /hpf (None Seen); Transitional Epithelial - Ur 0-5 SEEN /hpf (0-5)
== END | disposition home or self-care (01) ==
LOC: BIMLAB 15:41
PROVIDERS: PCP Family Medicine; Visit Provider Family Medicine
DX: R35.0 Frequency of micturition (principal)
CPT/HCPCS: 81001

== ENCOUNTER → 2025-01-10 | Outpatient (CLI) | payer MEDICARE, SELFPAY | END | disposition home or self-care (01) | LOC: LABSPEC 15:56 | PROVIDERS: PCP Family Medicine; Referring Provider Physician Assistant; Visit Provider Physician Assistant | DX: R19.7 Diarrhea, unspecified (principal) | CPT/HCPCS: 87493 ==